=== PATIENT | male | born 1945 | race Caucasian/White ===

== ENCOUNTER → 2016-10-25 | Outpatient (CLI) | payer MEDICARE, BC ==
[~2016-10-25] MED LIST: /HYDR10TAB PO; /MOXI40TA PO; /ONDA4TA PO; /PRAV20TA PO; /PREG50CA PO; ACET50TA PO; ALDA25TA2 PO; ALLO100T PO; ALLO300T2 PO; AMLO10TA PO; ASPI325T PO; ASPI81TA11 PO; AZIT500T2 PO; BYST2.5T2 PO; CALC1CAP PO; CARD240C5 PO; CART120C PO; CART240C PO; CARV12.5 PO; CARV25TA PO; CO Q200C PO; DILT240C5 PO; DOCU100C PO; DRIS50002 PO; EMLA2.5C EXT; FERR325T3 PO; FLUO20CA8 PO; FLUO40CA PO; FURO40TA2 PO; GABA-283 PO; GABA600T PO; GLIP5TAB2 PO; GLIP5TAB8 PO; GLUC5TAB3 PO; HEPARIN 1,000 UNITS/ML 10ML VIAL (FOR RADIOLOGY& DIALYSIS ONLY) As Ordered ONE; HYDR-4267 PO; INSULANT SC; ISOVUE-300 61% 50ML VIAL (Q9967) As Ordered ONE; LISI-538 PO; LISI10TA4 PO; LISI40TAB PO; LOSA100T PO; METF1000 PO; MIDAZOLAM INJ 2 MG/2 ML VIAL (J2250) As Ordered ONE; MUPI2OI TOP; NEUR300C PO; NITR0.1S SL; NORT25CA2 PO; OMEG100011 PO; OXYC-517 PO; OXYC1SOL PO; PERCOCET PO; PRAV20TA2 PO; PRAV40TA2 PO; PRIL20CA9 PO; PROS5TAB PO; PROZ40CA PO; ROXI1TAB2 PO; SENO8.6T10 PO; SODIUM BICARBONATE 8.4% INJ 50MEQ 50 ML VIAL As Ordered ONE; TAMS0.4C PO; TERA5CA PO; TYLE325T5 PO; VITA10002 PO; VITA400T15 PO; ZOLP-187 PO; fentaNYL 100 MCG/2 ML INJECTION (J3010) As Ordered ONE
--- NOTE | 2016-10-25 17:42 | REPKIM ---
CLINICAL HISTORY: Patient with history of ESRD, right arm AVF, HTN, diabetes, PVD, CAD, NV and PTCA/stent in August 2016 presents with bilateral hip pain and lower extremity numbness. ABIs revealed 0.6 on the left and 0.7 on the right. Patient was referred to IR for an abdominal aortogram/distal runoff possible intervention. PROCEDURE PERFORMED: 1. Abdominal Aortogram 2. Non-selective Pelvic Arteriogram 3. Selective Bilateral Lower Extremity Arteriogram INTERVENTIONALIST: No Hart MD CONSENT: The risks, benefits and alternatives to the procedure were explained to the patient and informed written consent was obtained. MEDICATIONS: Local Lidocaine, Versed IV and Fentanyl IV. SEDATION: Conscious sedation using Versed 2.0 mg IV and Fentanyl 100 mcg IV; starting time at 1003 and end at 1135. Independent trained observer was present during the entire duration of the conscious sedation for monitoring. CONTRAST: 145 mL Isovue 300 EBL: 15 mL FLUORO TIME: 12.1 minutes PROCEDURE: The patient was brought to the interventional radiology suite and was positioned supine on the table. Time out procedure was performed. The right groin was prepped and draped in the usual sterile fashion. Local anesthetic was established using 2% Lidocaine. A 4-Argentine vascular sheath was introduced into the right common femoral artery using the Seldinger technique with a 25-gauge micropuncture needle under ultrasound guidance. Over a guidewire, a 4-Argentine Omniflush catheter was advanced and under fluoroscopy positioned at the level of the renal arteries. Contrast was injected and abdominal aortogram was performed in the frontal projection. The catheter was withdrawn and positioned in the distal aorta above its bifurcation. Contrast was injected and non- selective pelvic angiogram was performed in both oblique projections. Then selective catheterization of the left common iliac artery was performed and the guidewire advanced to the left external iliac artery. Then the catheter was advanced and its tip positioned in the left external iliac artery. Contrast was injected and a selective left lower extremity arteriogram was performed. Catheter was removed over a guidewire. Then contrast was injected through the side arm of the vascular sheath and a selective right lower extremity arteriogram was performed. The catheter and vascular sheath were removed. Hemostasis was achieved by manual compression over the puncture site in the recovery room. The patient tolerated the procedure well with no complications. This procedure was performed with fluoroscopic guidance. Dr. Hart was present. FINDINGS: ABDOMINAL AORTA: The visualized portion of the abdominal aorta and its bifurcation is patent and demonstrates a classic anatomy. There is a single renal artery bilaterally, without evidence of hemodynamically significant stenosis. The infrarenal aorta is patent with diffuse atherosclerotic disease without significant stenosis or aneurysmal dilation. LEFT LOWER EXTREMITY: The common iliac artery, external iliac artery and internal iliac artery are patent with no significant stenosis. There is a focal mild stenosis involving the distal external iliac artery. The common femoral artery is patent with no significant stenosis. The profunda femoris artery is patent with no significant stenosis. There are multisegmental moderate stenoses involving the superficial femoral artery. The SFA and popliteal arteries are diseased but patent and continuous. The tibioperoneal trunk is patent but diseased. There is a trifurcation. Both anterior tibial and peroneal arteries taper off in the proximal calf level. The posterior tibial artery is patent and continuous to the distal calf level which then reconstitutes the peritoneal artery via collaterals. There is peroneal continuation of the posterior tibial artery which is the dominant blood supply to the foot. The posterior tibial artery then continues as the plantar artery in the foot. Severely diseased tiny distal anterior tibial reconstitutes via collaterals off the peroneal artery. The reconstituted tiny size diseased anterior tibial artery then continues as the dorsalis pedis artery in the foot. RIGHT LOWER EXTREMITY: The common iliac artery, external iliac artery and internal iliac artery are patent with no significant stenosis. There is a mild stenosis involving the distal external iliac artery. The common femoral artery is patent with no significant stenosis. The profunda femoris artery is patent with no significant stenosis. There are multisegmental moderate stenoses involving the superficial femoral artery. The SFA and popliteal arteries are diseased but patent and continuous. The tibioperoneal trunk is patent but diseased. There is a trifurcation. Both anterior tibial and peroneal arteries taper off in the proximal calf level. The posterior tibial artery is patent and continuous without significant stenosis. The posterior tibial artery is the dominant blood supply to the foot. The posterior tibial artery continues as the plantar artery in the foot. The distal peroneal artery and severely diseased tiny distal anterior tibial reconstitute via collaterals off the posterior tibial artery. IMPRESSION: 1. Evaluation of the abdominal aorta and pelvic arteries is unremarkable except mild stenosis involving the distal external iliac artery. There is no significant inflow problem. Bilateral pelvic and hip pains are not due to vascular insufficiency. 2. Multisegmental moderate stenoses involving bilateral superficial femoral artery. Bilateral SFA and popliteal arteries are diseased but patent and continuous. The profunda femoris artery is patent with no significant stenosis. 3. Infrapopliteal disease with essentially a single vessel distal runoff via the dominant posterior tibial artery as discussed above. The posterior tibial artery continues as the plantar artery in the foot. Diseased bilateral tiny distal anterior tibial arteries reconstitute via collaterals. Advise routine vascular surgery follow up if worsening symptoms. Please see the report above for all other findings and details. cc: MD Jian Thakkar DO Khalid P Sindhu, MD MTDD
== END | disposition home or self-care (01) ==
LOC: M IRPRO 08:45
PROVIDERS: ATTEND Internal Medicine Cardiovascular Disease
DX: I70.203 Unspecified atherosclerosis of native arteries of extremities, bilateral legs (principal); M25.552 Pain in left hip; M25.551 Pain in right hip; R20.0 Anesthesia of skin; N18.6 End stage renal disease; I10 Essential (primary) hypertension; E11.9 Type 2 diabetes mellitus without complications; I25.10 Atherosclerotic heart disease of native coronary artery without angina pectoris; I25.2 Old myocardial infarction
CPT/HCPCS: 36246; 75625; 75716; C1769; C1887; C1894; J2250; J3010; Q9967

== ENCOUNTER → 2017-01-19 | Outpatient (CLI) | payer MEDICARE, BC ==
[~2017-01-19] MED LIST changes: -DILT240C5 PO; +DILT240C75 PO; -HEPARIN 1,000 UNITS/ML 10ML VIAL (FOR RADIOLOGY& DIALYSIS ONLY) As Ordered ONE; -ISOVUE-300 61% 50ML VIAL (Q9967) As Ordered ONE; -MIDAZOLAM INJ 2 MG/2 ML VIAL (J2250) As Ordered ONE; -SODIUM BICARBONATE 8.4% INJ 50MEQ 50 ML VIAL As Ordered ONE; -fentaNYL 100 MCG/2 ML INJECTION (J3010) As Ordered ONE
[2017-01-19 14:18] LABS: CALCIUM LEVEL 6.7 MG/DL (8.8-10.2); CREATININE FOR GFR 8.05 MG/DL (0.70-1.30); GLOMERULAR FILTRATION RATE 7.1 (>42); POTASSIUM SERUM 4.1 MEQ/L (3.5-5.1)
== END ==
LOC: M SMT 09:40
PROVIDERS: ATTEND Internal Medicine Cardiovascular Disease
DX: I25.10 Atherosclerotic heart disease of native coronary artery without angina pectoris (principal); R07.89 Other chest pain; N18.9 Chronic kidney disease, unspecified

== ENCOUNTER 2017-01-29 09:18 | Inpatient (IN) | payer MEDICARE, BC ==
[~2017-01-29] VITALS: Ht 188 cm; Wt 118.7 kg
[2017-01-29] MEDS ORDERED: VITA50003 (09:43)
[2017-01-29] MEDS ORDERED: PRAV20TA2 (09:43)
[2017-01-29] MEDS ORDERED: CLOP75TA2 PO (09:43)
[2017-01-29] MEDS ORDERED: GLIP5TAB15 PO (09:43)
[2017-01-29] MEDS ORDERED: LYRI100C10 (09:43)
[2017-01-29 10:03] LABS: BASO % 0.3 % (0.0-1.0); EOS # 0.1 K/mm3 (0.0-0.50); EOS % 2.3 % (0.0-3.0); LARGE UNSTAINED CELL % 0.5 % (0.0-4.0); LYMPH # 0.5 K/mm3 (1.5-4.5); LYMPH % 7.3 % (24.0-44.0); MEAN CORPUSCULAR HEMOGLOBIN 28.8 pg (27.0-33.0); MEAN CORPUSCULAR HGB CONC 31.5 g/dl (32.0-36.5); MEAN CORPUSCULAR VOLUME 91.3 fl (80.0-96.0); MONO # 0.3 K/mm3 (0.0-0.8); MONO % 4.4 % (0.0-5.0); PLATELET COUNT, AUTOMATED 112 k/mm3 (150-450); RED CELL DISTRIBUTION WIDTH 14.3 % (11.5-14.5); WHITE BLOOD COUNT 5.9 K/mm3 (4.0-10.0)
[2017-01-29 10:11] LABS: INR 1.11
[2017-01-29 10:23] LABS: CALCIUM LEVEL 7.4 MG/DL (8.8-10.2); CREATININE FOR GFR 7.41 MG/DL (0.70-1.30); GLOMERULAR FILTRATION RATE 7.8 (>42); MAGNESIUM LEVEL 3.3 MG/DL (1.8-2.4); PHOSPHORUS LEVEL 4.1 MG/DL (2.5-4.9); POTASSIUM SERUM 4.7 MEQ/L (3.5-5.1)
--- NOTE | 2017-01-29 11:57 | REP ---
CT HEAD WITHOUT CONTRAST: COMPARISON: None. The ventricles and sulci are dilated. There is no evidence of an extra-axial fluid collection or shift of the midline structures. There is a tiny focal lucency seen in the head of the caudate nucleus on the right, likely an old lacunar infarct. There is no evidence of an acute intracranial hemorrhagic or nonhemorrhagic event. The posterior fossa shows cerebellar atrophy. The skull and imaged paranasal sinuses along with the mastoid air cells are unremarkable. IMPRESSION: 1. Diffuse cerebellar and cerebral atrophy. 2. Small old right lacunar infarct as described above. 3. No evidence of an acute intracranial hemorrhagic or nonhemorrhagic event. Signed by Jerald Ahmadi DO 01/29/2017 01:32 P
--- NOTE | 2017-01-29 12:08 | REP ---
PORTABLE CHEST: HISTORY: Dyspnea. COMPARISON: 08/16/2016 The technique utilized in obtaining the radiograph has magnified the cardiac silhouette and accentuated the interstitial markings. There is cardiomegaly. Dual chamber bipolar pacemaker device, status quo. There is pulmonary vascular redistribution. There is increased interstitial markings throughout the lung hitchcock with bilateral perihilar peribronchial cuffing and haziness throughout the pulmonary vascularity. IMPRESSION: CHF. Signed by Jerald Ahmadi DO 01/29/2017 01:32 P
[2017-01-29] MEDS ORDERED: FUROSEMIDE 20 MG/2 ML VIAL (J1940) IV ONE (13:15)
--- NOTE | 2017-01-29 14:19 | HPEPDOC ---
Medical History and Physical Date of Admission 01/29/17 History and Physical PRIMARY CARE PROVIDER: Dr. Carter ATTENDING: Dr. Victor M Pretty CHIEF COMPLAINT: Generalized weakness HISTORY OF PRESENT ILLNESS: This is an 72-year-old male past history of end-stage renal disease on peritoneal hemodialysis, insulin-dependent diabetes mellitus, CAD status post PCI, hypertension, hyperlipidemia, diabetic neuropathy presents complaining of generalized weakness and tremulousness. Patient's states that's he's been feeling sick since , complaining of being tremulous with a flapping tremor like motions in his hands. Patient states he walks with a cane at baseline however has been having increased generalized weakness and has been having difficulty walking. Pt denies focal weakness/slurred speech/facial droop. Patient denies chest pain/shortness of breath/palpitations. No nausea/vomiting/abdominal pain. He does not these had increase amounts of swelling in his lower extremities and abdomen. States he is using his peritoneal dialysis as directed and is working properly. The patient was recently admitted last December for uremic pericarditis as well as volume overload requiring hemodialysis. PAST MEDICAL HISTORY: As per HPI PAST SURGICAL HISTORY: PCI stents, kidney stents from kidney stone, lithotripsy , carpal tunnel, PPM SOCIAL HISTORY: Smoked 2ppd x 50 years, quit 10 years ago. No alcohol or illicit drugs. Walks with a cane. FAMILY HISTORY: Non contributory ALLERGIES: Please see below. REVIEW OF SYSTEMS: HEENT: Denies sore throat/headache CARDIOVASCULAR: Denies chest pain/palpitations RESPIRATORY: No shortness of breath/cough GASTROINTESTINAL: denies nausea/vomiting GENITOURINARY: Denies dysuria/urinary urgency. MUSCULOSKELETAL: Denies myalgias/arthralgias NEUROLOGICAL: Denies any focal weakness. Tremulous Rest of ROS negative. HOME MEDICATIONS: Please see below. PHYSICAL EXAMINATION: Vitals: (see below) General: No acute distress, laying comfortably in bed. HEENT: Moist mucous membranes. Neck: No JVD or lymphadenopathy Cardiac: RRR, 3/6 GRADY 2nd RICS Pulm: Coarse crackles at the bases b/l. No wheezing, rhonchi Abd: NT/ + BS. Distended. Ext: 1+ pitting edema BLE. No cyanosis. + Asterixis. RUE fistula +bruit; distal pulse intact. Neuro: Strength 5/5 BUE and BLE. CN 2-12 intact. F to N intact Negative pronator drift. Negative Babinki. LABORATORY DATA: See below. IMAGING: CXR 01/29/17 The ventricles and sulci are dilated. There is no evidence of an extra-axial fluid collection or shift of the midline structures. There is a tiny focal lucency seen in the head of the caudate nucleus on the right, likely an old lacunar infarct. There is no evidence of an acute intracranial hemorrhagic or nonhemorrhagic event. The posterior fossa shows cerebellar atrophy. The skull and imaged paranasal sinuses along with the mastoid air cells are unremarkable. IMPRESSION 1. Diffuse cerebellar and cerebral atrophy. 2. Small old right lacunar infarct as described above. 3. No evidence of an acute intracranial hemorrhagic or nonhemorrhagic event. CXR 01/29/17 The technique utilized in obtaining the radiograph has magnified the cardiac silhouette and accentuated the interstitial markings. There is cardiomegaly. Dual chamber bipolar pacemaker device, status quo. There is pulmonary vascular redistribution. There is increased interstitial markings throughout the lung hitchcock with bilateral perihilar peribronchial cuffing and haziness throughout the pulmonary vascularity. IMPRESSION: CHF. MICROBIOLOGY: Please see below. ASSESSMENT/PLAN: 1. Congestive heart failure 2/2 progressive renal failure. Unknown EF. Patient is typically on peritoneal dialysis at home. States he has been complaining. Chest x-ray will pulmonary congestion. Denies chest pain/SOB. Discussed with Dr. Dawkins, patient will be getting hemodialysis. Fluid resections. Daily weights. Patient does urinate minimally and has been given Lasix by the ED. Echocardiogram. Trend cardiac enzymes. 2. Asterixis- secondary to progressive renal failure. Will be dialyzed. If patient remains tremulous despite's being dialyzed, we'll need to look into other causes of his tremors. The patient does have a PPM and we are unable to get an MRI of the brain. He does have atrophy within the cerebellar region on the CAT scan. Neuro checks. 3. Insulin-dependent diabetes mellitus- continue Levemir and sliding scale insulin. Hold by mouth meds. 4. Hypertension- continue home meds 5. CAD status post PCI- continue aspirin and statin 6. Hyperlipidemia- on statin 7. History of complete heart block status post PPM- EKG with a paced rhythm. 8. Chronic anemia - normocytic - likely from anemia of chronic kidney dz, will check anemia panel. DVT prophylaxis- heparin subcutaneous Patient will be followed by Dr. Pretty starting 01/30/17 at 7 AM. Vital Signs Vital Signs Date Time Temp Pulse Resp B/P (MAP) Pulse Ox O2 Delivery O2 Flow Rate FiO2 01/29/17 12:45 136/63 (87) 01/29/17 12:30 64 90 01/29/17 09:28 97.9 18 Laboratory Data Labs 24H Laboratory Tests 2 01/29/17 09:51: White Blood Count 5.9, Red Blood Count 2.82L, Hemoglobin 8.1L, Hematocrit 25.8L , Mean Corpuscular Volume 91.3, Mean Corpuscular Hemoglobin 28.8, Mean Corpuscular Hemoglobin Concent 31.5L, Red Cell Distribution Width 14.3, Platelet Count 112L, Neutrophils (%) (Auto) 85.0H, Lymphocytes (%) (Auto) 7.3L, Monocytes (%) (Auto) 4.4, Eosinophils (%) (Auto) 2.3, Basophils (%) (Auto) 0.3, Neutrophils # (Auto) 5.0, Lymphocytes # (Auto) 0.5L, Monocytes # (Auto) 0.3, Eosinophils # (Auto) 0.1, Basophils # (Auto) 0.0, Large Unclassified Cells % 0.5 , Large Unclassified Cells # 0.0, Prothrombin Time 14.4, Prothromb Time International Ratio 1.11, Activated Partial Thromboplast Time 29.7, Anion Gap 8 , Glomerular Filtration Rate 7.8L, Blood Urea Nitrogen 50H, Creatinine 7.41H, Sodium Level 136, Potassium Level 4.7, Chloride Level 100, Carbon Dioxide Level 28, Calcium Level 7.4L, Phosphorus Level 4.1, Total Creatine Kinase 63, Magnesium Level 3.3H, Creatine Kinase MB 1.5, Creatine Kinase MB Relative Index 2.38, Troponin I 0.03 CBC/BMP Laboratory Tests 01/29/17 09:51 Red Blood Count 2.82 L, Mean Corpuscular Volume 91.3, Mean Corpuscular Hemoglobin 28.8, Mean Corpuscular Hemoglobin Concent 31.5 L, Red Cell Distribution Width 14.3, Neutrophils (%) (Auto) 85.0 H, Lymphocytes (%) (Auto) 7.3 L, Monocytes (%) (Auto) 4.4, Eosinophils (%) (Auto) 2.3, Basophils (%) (Auto ) 0.3, Neutrophils # (Auto) 5.0, Lymphocytes # (Auto) 0.5 L, Monocytes # (Auto) 0.3, Eosinophils # (Auto) 0.1, Basophils # (Auto) 0.0, Calcium Level 7.4 L, Phosphorus Level 4.1, Total Creatine Kinase 63 Home Medications Scheduled Ascorbic Acid (Vitamin C) 500 Mg Cap, 1,000 MG PO QHS Aspirin (Aspirin Low Dose) 81 Mg Tab, 81 MG PO QHS Carvedilol (Carvedilol) 25 Mg Tab, 25 MG PO BID Clopidogrel Bisulfate (Clopidogrel) 75 Mg Tab, 75 MG PO QHS Cyanocobalamin (Vitamin B-12) 1,000 Mcg Tab, 1,000 MCG PO QHS Ferrous Sulfate (Ferrous Sulfate) 325 Mg Tab, 325 MG PO QHS Finasteride (Proscar) 5 Mg Tab, 5 MG PO QHS Fluoxetine Hcl (Fluoxetine HCl) 40 Mg Cap, 40 MG PO QHS Glipizide (Glipizide ER) 5 Mg Tab, 5 MG PO QHS Insulin Glargine (Lantus) 1 Units/0.01 Ml Susp, 40 UNITS SC QHS Lisinopril (Lisinopril) 20 Mg Tab, 20 MG PO BID Mupirocin (Mupirocin) 2 % Oin, 1 DOSE TOP ASDIRECTED APPLY TO CATH SITE WHEN NEEDED [place] 3 Polyunsat Fatty Acids ([place] 3 1000 mg) 1 Cap Cap, 2 CAP PO BID Omeprazole (Omeprazole) 40 Mg Cap, 40 MG PO QHS Vitamin D (Drisdol) 50,000 Unit Cap, 50,000 UNIT PO QWEEK MONDAY Scheduled PRN Acetaminophen (Tylenol) 325 Mg Tab, 650 MG PO Q4H PRN for PAIN / FEVER Milk Of Magnesia (Milk of Magnesia) 1,200 Mg/15 Ml [place], 30 ML PO DAILY PRN for CONSTIPATION Nitroglycerin (Nitrostat) 0.4 Mg Subl, 0.4 MG SL NITRO PRN for CHEST PAIN Oxycodone HCl (Oxycodone HCl) 5 Mg Tab, 5 MG PO QID PRN for PAIN Senna (Senna Lax) 8.6 Mg Tab, 1 TAB PO QHS PRN for CONSTIPATION Allergies Coded Allergies: Povidone Iodine (Verified Allergy, Unknown, 10/11/13) TAPE (Verified Allergy, Unknown, 10/11/13) DAVID BENITEZ MD January 29, 2017 14:19
[2017-01-29] MEDS ORDERED: MUPI2OI TOP (14:27)
[2017-01-29] MEDS ORDERED: DRIS50002 PO (14:27)
[2017-01-29] MEDS ORDERED: OMEP40CA2 PO (14:29)
[2017-01-29] MEDS ORDERED: NITR4TASL SL (14:29)
[2017-01-29] MEDS ORDERED: GLUCOSE 4 GM CHEW TABLET PO PRN (14:30)
[2017-01-29] MEDS ORDERED: DEXTROSE 50% 50 ML SYRINGE IV PRN (14:30)
[2017-01-29] MEDS ORDERED: GLUCAGON FOR INJ 1 MG VIAL (J1610) SC PRN (14:30)
[2017-01-29] MEDS ORDERED: VITA500C24 PO (14:31)
[2017-01-29] MEDS ORDERED: SENN8.6T10 PO (14:31)
[2017-01-29] MEDS ORDERED: FERR325T3 PO (14:31)
[2017-01-29] MEDS ORDERED: MILKSUS PO (14:31)
[2017-01-29] MEDS ORDERED: LYRI100C10 PO (14:32)
[2017-01-29] MEDS ORDERED: CO Q100C10 PO (14:35)
[2017-01-29] MEDS ORDERED: ATOR1TAB18 PO (14:35)
[2017-01-29] MEDS: HEPARIN SOD (PORCINE) 5000 UNITS/ML VIAL SQ SCH ×2 (14:51→22:11)
--- NOTE | 2017-01-29 14:51 | ECGEPIP ---
Stationary ECG Study [facility] - ED Test Date: 2017-01-29 Pat Name: JOYCE ANN Department: Room: - Gender: M [employer]: JJose : 1945 Requested By: ABBIE Hyman Order Number: [id number] Reading MD: Roxana Snyder Measurements Intervals [place] Rate: 68 P: 28 MA: 182 QRS: 268 QRSD: 192 T: 79 QT: 511 QTc: 545 Interpretive Statements ELECTRONIC VENTRICULAR PACEMAKER ABNORMAL RHYTHM ECG PRIOR 08/16/16 NOT PACED Electronically Signed On 01-29-2017 14:51:00 EDT by Roxana Snyder
[2017-01-29] MEDS ORDERED: FUROSEMIDE 100 MG/10 ML VIAL (J1940) IV ONE (15:00)
[2017-01-29] MEDS ORDERED: PRIMIDONE 50 MG TAB PO ONE (15:00)
[2017-01-29 15:30] VITALS: BP 145/60
[2017-01-29 15:58] VITALS: BP 145/60
[2017-01-29] MEDS: HumaLOG INSULIN (NovoLOG) PER UNIT SC SCH ×2 (17:12→21:00)
[2017-01-29 20:01] VITALS: BP 159/67
[2017-01-29] MEDS ORDERED: ASCORBIC ACID 500 MG TAB PO SCH (21:00)
[2017-01-29] MEDS ORDERED: FLUoxetine 20 MG CAP PO SCH (21:00)
[2017-01-29] MEDS ORDERED: PREGABALIN 100 MG CAP (LYRICA) PO SCH (21:00)
[2017-01-29] MEDS: PRIMIDONE 50 MG TAB PO SCH (22:11)
[2017-01-29 23:42] VITALS: BP 160/70
[2017-01-30] MEDS ORDERED: MUPIROCIN 2% OINT 22 GM TUBE TOP PRN
[2017-01-30] MEDS ORDERED: ACETAMINOPHEN 325 MG TAB PO PRN
[2017-01-30] MEDS ORDERED: MOM 30ML SUSPENSION UDC PO PRN
[2017-01-30] MEDS ORDERED: SENNA 8.6 MG TAB (SENOKOT) PO PRN
[2017-01-30] MEDS: OMEPRAZOLE 20 MG CAP PO SCH ×2 (01:16→20:18)
[2017-01-30] MEDS: CLOPIDOGREL 75 MG TAB PO SCH ×2 (01:17→20:15)
[2017-01-30] MEDS: FINASTERIDE 5 MG TAB PO SCH ×2 (01:17→20:17)
[2017-01-30] MEDS: CARVedilol 12.5 MG TAB PO SCH ×3 (01:17→20:17)
[2017-01-30] MEDS: CYANOCOBALAMIN 500 MCG TAB PO SCH ×2 (01:18→20:19)
[2017-01-30] MEDS: FERROUS SULFATE 325MG TAB PO SCH ×2 (01:18→20:16)
[2017-01-30] MEDS: ASPIRIN 81 MG ENTERIC TAB PO SCH ×2 (01:18→20:17)
[2017-01-30] MEDS: LISINOPRIL 20 MG TAB PO SCH ×3 (01:23→20:19)
[2017-01-30] MEDS: oxyCODONE 5MG TAB PO PRN (01:35)
[2017-01-30 04:57] VITALS: BP 152/72
[2017-01-30 05:21] LABS: MEAN CORPUSCULAR HEMOGLOBIN 29.6 pg (27.0-33.0); MEAN CORPUSCULAR HGB CONC 31.5 g/dl (32.0-36.5); MEAN CORPUSCULAR VOLUME 93.9 fl (80.0-96.0); RED CELL DISTRIBUTION WIDTH 14.1 % (11.5-14.5); WHITE BLOOD COUNT 7.1 K/mm3 (4.0-10.0)
[2017-01-30 05:41] LABS: CALCIUM LEVEL 7.2 MG/DL (8.8-10.2); CREATININE FOR GFR 7.69 MG/DL (0.70-1.30); GLOMERULAR FILTRATION RATE 7.4 (>42); PERCENT SATURATION 14.1 % (19.7-37.4); POTASSIUM SERUM 4.6 MEQ/L (3.5-5.1)
[2017-01-30] MEDS: HEPARIN SOD (PORCINE) 5000 UNITS/ML VIAL SQ SCH (06:00)
--- NOTE | 2017-01-30 06:36 | CR ---
DATE OF CONSULTATION: 01/29/2017 REASON FOR CONSULT: Shortness of breath and worsening weakness and tremors in this gentleman with end-stage renal disease. HISTORY OF PRESENT ILLNESS: Mr. Yuen is a 72-year-old gentleman with known history of longstanding diabetes, coronary artery disease, peripheral vascular disease, hypertension and end-stage renal disease. He has been on peritoneal dialysis. He presented to the emergency room today with generalized weakness and severe shaking of hands. He reports that he could not even hold a cup of coffee in his hand. He was also short of breath and chest x-ray showed congestive heart failure in the emergency room. The patient is admitted and a nephrology consultation was requested. The patient is seen in the emergency room. PAST MEDICAL AND SURGICAL HISTORY: 1. Longstanding type 2 diabetes. 2. Hypertension. 3. Hyperlipidemia. 4. End-stage renal disease. 5. History of kidney stones. 6. History of coronary artery disease, status post coronary angioplasty with stents. 7. History of peripheral vascular disease. 8. History of anemia of chronic kidney disease. 9. History of morbid obesity. 10. History of depression. MEDICATIONS (His home medications include): - vitamin C 500 mg daily - aspirin 81 mg daily - carvedilol 25 mg twice a day - Plavix 75 mg daily - B12 1000 mcg daily - ferrous sulfate 325 mg daily - Proscar 5 mg at bedtime - fluoxetine 40 mg at bedtime - glipizide 5 mg at bedtime - Lantus insulin 40 units subcutaneous at bedtime - lisinopril 20 mg twice a day - omega 3 fatty acids 1000 mg 3 capsules twice a day - omeprazole 40 mg at bedtime - vitamin D 50,000 units once a week - he also takes Tylenol as needed for headache and pain ALLERGIES: The patient reports allergy to IODINE and TAPE. PERSONAL AND SOCIAL HISTORY: The patient is and lives by himself. He has history of smoking which he quit about 10 years ago. He denies any alcohol or drug use. FAMILY HISTORY: Negative for end-stage renal disease. REVIEW OF SYSTEMS: The patient denies any fever or chills. He reports that he usually has tremors, but they got severe and he could not function or hold anything in his hands. Ears, nose and throat are unremarkable. Cardiovascular system is significant for dyspnea on exertion. He denies any chest pain or palpitations. Respiratory system is negative for cough or hemoptysis. Gastrointestinal (GI) system is significant for history of gastroesophageal reflux disease. The patient denies any nausea, vomiting or diarrhea. Genitourinary () system is significant for history of kidney stones and benign prostatic hypertrophy. He denies any dysuria or hematuria. Musculoskeletal system is significant for chronic back pain and difficulty ambulating. He has degenerative arthritis. Endocrine system is significant for secondary hyperparathyroidism and type 2 diabetes. He denies any hypoglycemic episodes. Neurological system is significant for chronic tremors which worsened over the last 72 hours. He denies any history of stroke. Hematological system is significant for anemia of chronic kidney disease. Skin is negative for rash or ulcers. PHYSICAL EXAMINATION: The patient is awake and alert at the time of my visit in the emergency room. Temperature 98.2 degrees Fahrenheit, heart rate 72 per minute and respiratory rate 22 per minute. Blood pressure 145/60 mmHg and oxygen saturation 97% on room air. Head is atraumatic. Ears, nose and throat are unremarkable. Pupils equal and reactive to light and sclerae anicteric. Neck is supple and jugular venous distention (JVD) is noticed about 6-7 cm above sternal angle. There is no thyroid enlargement and trachea is midline. Heart sounds are regular and lungs with bibasilar rales. Abdomen obese and nontender. Bowel sounds are present. There is no palpable organomegaly. Extremities have no cyanosis or clubbing. Skin has no rash or ulcers. Neurologically, he is awake, alert and oriented times three. There is no focal neurological deficit. LABORATORY DATA: Sodium 136 and potassium 4.7. BUN is 50 and creatinine 7.41. CO2 is 28, glucose 113 and calcium 7.4. Magnesium level is 3.3. His initial troponin was 0.03. WBC count 5.9, hemoglobin 8.1 and hematocrit 25.8. Platelets 112. Chest x-ray reviewed independently, he has cardiomegaly and bilateral pulmonary vascular congestion and interstitial edema. PROBLEMS: 1. Shortness of breath. The patient has chronic dyspnea on exertion. He is somewhat volume overloaded. We will initiate peritoneal dialysis with 2 liters bags and used to 2.5% solution. Will try to get him a negative fluid balance with dialysis. In addition, the patient will be given Lasix 100 mg intravenously and we will monitor his urine output. He does get severe leg cramps with aggressive fluid removal with dialysis. We will have to use caution as he is oxygenating 97% on room air. 2. Generalized weakness and tremors. His weakness is probably multifactorial. I have observed significant shaking of his hands and jerky movements. The patient has been adequately dialyzed and his last adequacy test was normal. We will continue with peritoneal dialysis and consider doing an extra session of hemodialysis tomorrow. At present, I will also add Mysoline 50 mg twice a day with the first dose now and monitor for the next couple of days how he responds. 3. End-stage renal disease. At present, the patient will be continued on peritoneal dialysis. We will probably perform one session of hemodialysis if his condition does not improve over next 48 hours. I will also discuss with the patient about possibility of switching back to hemodialysis due to his weakness and depression. He is struggling to continue with peritoneal dialysis at home. The patient also has significant limitations with transportation due to which he initially chose to perform peritoneal dialysis compared with hemodialysis. 4. Anemia. His anemia is chronic and is probably worse. We will check on his iron studies. He probably has some chronic GI blood loss. If his iron level is low, then we will consider giving him intravenous iron. He has received intravenous iron previously. The patient will also be treated with Aranesp depending upon his iron studies. 5. Hypertension. His blood pressure seems to be reasonable. We will continue with current antihypertensives. 6. Coronary artery disease. At present, his symptoms are more related to congestive heart failure and volume overload. His initial CPK and troponin are negative. I do not feel that he has any acute coronary problems at present. 7. Diabetes. I suggest to continue with insulin coverage and monitor his blood sugars closely. I thank you for involving me in the care of Mr. Yuen. I will follow him along with you.
[2017-01-30 08:00] VITALS: BP 105/53
[2017-01-30] MEDS: HumaLOG INSULIN (NovoLOG) PER UNIT SC SCH ×4 (09:22→20:19)
[2017-01-30] MEDS: PRIMIDONE 50 MG TAB PO SCH ×2 (09:27→20:17)
[2017-01-30] MEDS ORDERED: SLF 3 ML SYR IV PRN (10:15)
[2017-01-30 10:56] LABS: ALBUMIN 2.5 GM/DL (3.2-5.2); ALBUMIN/GLOBULIN RATIO 0.66 (1.00-1.93); BILIRUBIN,DIRECT 0.2 MG/DL (0.0-0.2); BILIRUBIN,TOTAL 0.6 MG/DL (0.2-1.0); TOTAL PROTEIN 6.3 GM/DL (6.4-8.2)
[2017-01-30 10:59] LABS: FOLATE 4.4 NG/ML (>5.4)
[2017-01-30] MEDS ORDERED: HEPARIN 1,000 UNITS/ML 10ML VIAL (FOR RADIOLOGY& DIALYSIS ONLY) IV ONE (11:45)
--- NOTE | 2017-01-30 13:03 | IPN ---
DATE: 01/30/2017 Wali is a patient of Dr. Amarilis Martin and the hospitalist service admitted with shortness of breath and altered motor function with generalized weakness and severe tremor of the hands that essentially is asterixis. He is unable to eat or drink because of this. He was volume overloaded on admission and was given peritoneal dialysis yesterday by Dr. Dawkins. He has a history of chronic anemia with anemia of chronic disease, hypertension, coronary artery disease, type 2 diabetes, and obviously end stage renal disease. PHYSICAL EXAMINATION: 140/80, pulse 68, respiratory rate 18, 91% oxygen saturation. GENERAL APPEARANCE: He is resting in bed. He is not short of breath at rest. No jugular venous distention (JVD) present. LUNGS: Decreased breath sounds heard. Rales at the bases. HEART: Regular rhythm. 1/6 systolic ejection murmur. ABDOMEN: Soft, nontender. He has trace to 1+ peripheral edema. His neck has JVD present. NEUROLOGIC EXAM: Shows that her follows commands. He has normal strength in the arms and legs. He has a flapping tremor of the hands with quite prominent asterixis. There is less tremor at rest. There is no cogwheeling rather. He does not have myoclonic jerking. LABORATORIES: Ammonia level was just ordered and pending. Sodium 134, potassium 4.6, creatinine 7.9. Iron studies show anemia of chronic disease, high ferritin, low TIBC. White count 7.1, hemoglobin 8.2, which is stable. Platelets 116. INR was 1.1. Blood sugars in the 140 range. IMPRESSION: 1. Myoclonus with asterixis. This has multiple etiologies. With his end stage renal disease we have to rule out hepatorenal syndrome and I have ordered a state ammonia level. I have also ordered a liver profile as he has not had liver functions done this admission. His INR is mildly prolonged. Etiology is unknown, certainly liver disease needs to be considered and I have ordered the liver profile and ammonia liver. Asterixis can also occur with volume toxicity after detention dialysis. This also could be a side affect of both SSRI's (patient on 40 mg of Prozac a day) as well as medications such as gabapentin and pregabalin (he is on Lyrica 100 mg at bedtime). I have reduced the dose of the Lyrica and the Mysoline by Dr. Dawkins. 2. End stage renal disease. Dialysis per Dr. Dawkins. 3. Congestive heart failure (CHF). He is volume overloaded. He does not make much urine. He is getting some IV Lasix. Most of his volume control needs to be through his dialysis sessions. 4. Anemia of chronic disease. Hemoglobin is stable. 5. Hyperlipidemia. He is on high dose atorvastatin. It might be prudent to reduce the dose of this in the face of his advanced renal disease and possibility of liver disease. I have taken the liberty of reducing his atorvastatin to 40 mg daily at bedtime. 6. Diabetes. He is on a sliding scale of insulin with coverage. 7. Chronic pain syndrome. I have reduced the Lyrica as noted above. He is on OxyIR as an outpatient. 8. Benign prostatic hypertrophy (BPH). He is on Proscar 5 mg daily which we will continue. 9. Coronary artery disease status post PCI with coronary artery stents. Continue Plavix 75 mg daily as well as his statin and beta-roger on carvedilol 25 mg twice a day. 10. Hypertension. Continue lisinopril 20 mg daily, carvedilol and volume control by dialysis. If the asterixis does not improve, would consider having neurology see him, though the etiology of this is most likely metabolic and not neurologic.
[2017-01-30 15:04] VITALS: BP 136/69
[2017-01-30] MEDS: NYSTATIN 100,000 UNITS/GM TOPICAL PWD 15 GM TOP SCH ×3 (15:15→20:20)
[2017-01-30] MEDS: SLF 3 ML SYR IV SCH ×2 (16:20→20:20)
[2017-01-30] MEDS: ATORVASTATIN 20 MG TAB PO SCH (20:14)
[2017-01-30] MEDS: FLUoxetine 20 MG CAP PO SCH (20:15)
[2017-01-30] MEDS: PREGABALIN 50 MG CAP (LYRICA) PO SCH (20:18)
[2017-01-30 20:24] VITALS: BP 145/74
[2017-01-30] MEDS ORDERED: ATORVASTATIN 20 MG TAB PO SCH (21:00)
--- NOTE | 2017-01-30 21:46 | IPN ---
DATE: 01/30/2017 Mr. Yuen is seen this morning on his bedside. He remains very weak and reports that his jerky movements of his hands are not any significantly improved. Nursing staff reports that the patient could not get up himself from the bed and needed assistance. The patient denies any chest pain or palpitations. He remains short of breath on exertion. There is no nausea or vomiting. PHYSICAL EXAMINATION: Temperature 97.7 degrees Fahrenheit, heart rate 60 per minute, respiratory rate 20 per minute, blood pressure 105/53 mm of mercury, and oxygen saturation 91% on room air. His head is atraumatic. Neck veins are moderately distended. Neck is supple and without thyromegaly. Pupils are equal and reactive to light and sclerae are anicteric. Ears, nose, and throat are unremarkable. Heart sounds are regular and lungs with moderate bilateral air entry. Abdomen is soft, obese, and nontender. Bowel sounds are normal. Extremities have no cyanosis or clubbing. Skin has no rash or ulcers. Neurologically he is awake and alert. Jerky movements of his upper extremities are only slightly improved since admission. Today's labs show sodium level 134, potassium 4.6, BUN 54, creatinine 7.69, glucose 217, and calcium 7.2. Magnesium level is 3.0. Iron 31, saturation 14%, and ferritin 1103. Vitamin B12 level 1312 and folic acid 4.4. Serum ammonia level is 21. Liver function tests (LFTs) are normal with total bilirubin 0.6, AST 4, ALT 7, and alkaline phosphatase 104. PROBLEMS: 1. End-stage renal disease. The patient has been on peritoneal dialysis. I suspect that he has been under-dialyzed. At present we will continue with five exchanges of peritoneal dialysis and in addition will perform one session of hemodialysis today. 2. Jerky movements of hands and tremors. I suspect uremia is the cause of his tremulous, jerky movements. It remains to be seen if his symptoms improve after hemodialysis. The patient will be dialyzed this afternoon, and in addition we will continue with peritoneal dialysis, five exchanges per day. 3. Anemia. The patient has folic acid deficiency and anemia of end-stage renal disease. He also has iron deficiency, so his anemia seems to be multifactorial. At present, we will start with folic acid 1 mg daily and Nephro-Leland one tablet daily. We will also give him a dose of Venofer 400 mg intravenously once his condition improves. 4. Hypotension. Blood pressure seems to be reasonable on current antihypertensive medications. 5. Diabetes. We will continue with insulin coverage per protocol. 6. Protein malnutrition. His serum albumin level is only 2.5. Most likely his oral intake of protein is low. The patient has been living by himself and does not cook. We will discuss with the dietitian to improve his protein intake.
[2017-01-31] VITALS (8 sets, daily range): BP systolic 118–176; BP diastolic 56–92
[2017-01-31] MEDS: SLF 3 ML SYR IV SCH ×3 (06:15→21:11)
[2017-01-31 07:40] LABS: MEAN CORPUSCULAR HEMOGLOBIN 30.4 pg (27.0-33.0); MEAN CORPUSCULAR HGB CONC 32.6 g/dl (32.0-36.5); MEAN CORPUSCULAR VOLUME 93.3 fl (80.0-96.0); RED CELL DISTRIBUTION WIDTH 14.1 % (11.5-14.5); WHITE BLOOD COUNT 8.2 K/mm3 (4.0-10.0)
[2017-01-31 07:50] LABS: CALCIUM LEVEL 8.6 MG/DL (8.8-10.2); CREATININE FOR GFR 4.87 MG/DL (0.70-1.30); GLOMERULAR FILTRATION RATE 12.6 (>42); MAGNESIUM LEVEL 2.4 MG/DL (1.8-2.4); POTASSIUM SERUM 4.1 MEQ/L (3.5-5.1)
[2017-01-31] MEDS: HumaLOG INSULIN (NovoLOG) PER UNIT SC SCH ×4 (08:06→20:53)
[2017-01-31] MEDS: PRIMIDONE 50 MG TAB PO SCH ×2 (08:07→21:08)
[2017-01-31] MEDS: NEPHRO-VIT TAB (NEPHROCAPS) PO SCH (08:07)
[2017-01-31] MEDS: NYSTATIN 100,000 UNITS/GM TOPICAL PWD 15 GM TOP SCH ×2 (08:07→21:10)
[2017-01-31] MEDS: FOLIC ACID 1 MG TAB PO SCH (08:08)
[2017-01-31] MEDS: CARVedilol 12.5 MG TAB PO SCH ×2 (08:08→21:08)
[2017-01-31] MEDS: LISINOPRIL 20 MG TAB PO SCH ×2 (08:08→21:08)
--- NOTE | 2017-01-31 16:02 | REP ---
CHEST, TWO VIEWS: Two views of the chest are performed and compared to prior study of 01/29/2017. There is cardiomegaly. There is mild increase in diffuse bilateral infiltrates. Left dual lead pace maker is again noted. There are degenerative changes of the spine. IMPRESSION: Mild increase in bilateral infiltrates. Signed by Tommie Ward MD 01/31/2017 04:10 P
--- NOTE | 2017-01-31 19:08 | ECHO ---
DATE OF PROCEDURE: 01/31/2017 REFERRING PHYSICIAN: Dr. Sow and Dr. Brown INDICATION: Edema. HEIGHT: 188 cm WEIGHT: 127 kg DIMENSIONS: IVS: 1.5 LV: 5.4 LVPW: 1.2 LA: 4.8 Aorta: 3.3 FINDINGS: The study is rather difficult technical quality corresponding to patient's body habitus. Left ventricle is normal size and overall normal contractility. I estimate ejection fraction (EF) around 65%. Right ventricle was poorly seen but does not appear grossly enlarged. Left atrium is at least moderately enlarged. Right atrium was poorly visualized. Aortic valve is calcific. It has three cusp and there is some restriction of leaflet mobility. Mitral valve also exhibits degenerative abnormalities with thickening of leaflets and mitral annular calcifications. Tricuspid valve appears normal. Pulmonic valve was not well seen. Inferior vena cava is dilated and has only minimal collapse with respiration indicative of likely very high central venous pressure. Aortic root is normal. Aortic arch also appears normal. Abdominal aorta was not well seen. Doppler interrogation reveals mild aortic stenosis with mean gradient 20 mmHg. There is probably moderate or moderately severe mitral insufficiency with somewhat eccentric mitral regurgitation (MR) jet. No mitral stenosis. Mild tricuspid insufficiency is seen. Calculated pulmonary artery pressure is at least in mid to high 40s corresponding to moderate pulmonary hypertension. Mitral inflow pattern and tissue Doppler imaging of mitral annulus reveal grade 2 diastolic dysfunction indicative of high LVEDP. CONCLUSIONS: 1. Study is of fair technical quality. 2. Normal left ventricle (LV) size with moderate left ventricular hypertrophy (LVH) and overall preserved LV systolic function. 3. Mild aortic stenosis. 4. At least moderate or moderately severe mitral insufficiency. 5. High central venous pressure. 6. At least moderate pulmonary hypertension. 7. Pacemaker lead artifact apparent in right ventricular chambers. COMMENT: Subacute bacterial endocarditis (SBE) prophylaxis is not recommended. MTDD
[2017-01-31] MEDS: OMEPRAZOLE 20 MG CAP PO SCH (21:06)
[2017-01-31] MEDS: CYANOCOBALAMIN 500 MCG TAB PO SCH (21:07)
[2017-01-31] MEDS: ATORVASTATIN 20 MG TAB PO SCH (21:07)
[2017-01-31] MEDS: ASPIRIN 81 MG ENTERIC TAB PO SCH (21:09)
[2017-01-31] MEDS: FLUoxetine 20 MG CAP PO SCH (21:09)
[2017-01-31] MEDS: PREGABALIN 50 MG CAP (LYRICA) PO SCH (21:09)
[2017-01-31] MEDS: FERROUS SULFATE 325MG TAB PO SCH (21:10)
[2017-01-31] MEDS: CLOPIDOGREL 75 MG TAB PO SCH (21:10)
[2017-01-31] MEDS: FINASTERIDE 5 MG TAB PO SCH (21:10)
--- NOTE | 2017-01-31 21:33 | IPN ---
DATE: 01/31/2017 The patient was seen and examined. Continued to have dyspnea and the patient desaturates with any type of exertion, including sitting up and standing. The patient is morbidly obese. Denies any chest pain, pressure or discomfort. Denies any fevers or chills. VITAL SIGNS: Current temperature 99.4, pulse 78, respirations 20, blood pressure 138/60, pulse oximetry 93% on 2 liters nasal cannula. LABORATORY DATA: WBC 8.2, hemoglobin and hematocrit 8.6/26.4, platelets 122. Chemistry: Sodium 138, potassium 4.1, chloride 102, bicarbonate 30, BUN 30, creatinine 4.87. PHYSICAL EXAMINATION: GENERAL: The patient is morbidly obese, resting comfortably in no acute distress. HEENT: Normocephalic, atraumatic. PULMONARY: Decreased breath sounds bilaterally. Rales in bilateral base. CARDIAC: Regular rate and rhythm. 1/6 systolic murmur. ABDOMEN: Soft, nontender. NECK: Jugular venous distention (JVD) present. EXTREMITIES: 1+ bilateral lower extremity edema. ASSESSMENT AND PLAN: This is a 72-year-old male patient of Dr. Martin with underlying medical history of end stage renal disease on peritoneal dialysis, questionable poor compliance, insulin dependent diabetes, coronary arterial disease with stents, hypertension, dyslipidemia, diabetic neuropathy, who presented tremulous and generalized weakness. 1. Myoclonic with asterixis. Multiple etiologies, possibly secondary to uremia with his end stage renal disease. Symptoms improved after dialysis. Ammonia level appreciated to be negative. Possibility includes side effect of SSRI. The patient's Lyrica dose is reduced. Mysoline dose has also been reduced. 2. End stage renal disease. Dialysis as per Dr. Dawkins. Continue current medications. 3. Congestive heart failure (CHF) with volume overload. The patient does not make urine, possibly secondary to poor compliance with dialysis. Management of fluid is as per nephrology. 4. Anemia of chronic disease. Followup hemoglobin and hematocrit. 5. Dyslipidemia. Continue statin. 6. Diabetes. Continue insulin with coverage. Followup fingersticks and adjust as needed. 7. Chronic pain. The patient's Lyrica has been reduced. Continue current medication, including OxyIR. 8. Benign prostatic hypertrophy (BPH) . Continue current medication. 9. Coronary artery disease with PCI. Continue Plavix, statin, beta roger. Continue aspirin. 10. Hypertension. Continue beta roger and Lisinopril. 11. Morbid obesity complicating care. 12. Deep vein thrombosis (DVT) prophylaxis. The patient is already on aspirin and Plavix. We will place the patient on thromboembolic compression stockings (TEDS) and sequential compression device (SCD). DISPOSITION: Pending clinical improvement, physical therapy (PT), and further recommendations from nephrology.
--- NOTE | 2017-01-31 22:02 | IPN ---
DATE: 01/31/2017 Mr. Yuen is seen this morning on his bedside. He is currently undergoing peritoneal dialysis in his room. He had one session of hemodialysis yesterday due to worsening weakness and tremors. It was felt that the patient probably has developed uremic syndrome due to under-dialysis. He is feeling a little better today and reports that weakness and tremors have improved to a certain extent. He denies any nausea or vomiting and reports that he had a good breakfast. There is no dyspnea or chest pain today. PHYSICAL EXAMINATION: Temperature 97.8 degrees Fahrenheit, heart rate 72 per minute, respiratory rate 20 per minute, blood pressure 167/75 mm of mercury, and oxygen saturation 92% on 2 liters oxygen. Head is atraumatic. Ears, nose and throat are unremarkable. Neck veins are mildly distended. There is no thyroid enlargement. Heart sounds are regular, and lungs sound clear to auscultation. Abdomen soft, obese, and nontender. Peritoneal dialysis catheter is intact. Extremities have no cyanosis or clubbing. Skin has no rash or ulcers. Neurologically he is awake, alert, and oriented times three. He still has mild tremors of his both upper extremities. Today's labs show WBC count 8.2, hemoglobin 8.6, hematocrit 26.4, platelets 122. Sodium 138, potassium 4.1, BUN 30, creatinine 4.87, glucose 191, and calcium 8.6. PROBLEMS: 1. Shortness of breath. His volume status has improved significantly. He had 2.5 liters negative fluid balance yesterday both with hemodialysis and peritoneal dialysis. His weight is down by about 4 kg since admission. He will continue with peritoneal dialysis today, and we will try to achieve further negative fluid balance. 2. Generalized weakness and tremors, probably related to uremia caused by poor function of peritoneal dialysis. I have discussed with the patient about possibility of switching him back to hemodialysis. He is thinking about it, and he will need to arrange transportation for three times a week dialysis. At present our plan is to perform hemodialysis again on February 01 and continue with peritoneal dialysis today. 3. Anemia. The patient has iron deficiency, and we will give him intravenous iron once his medical condition optimizes. At present, there is no active bleeding, and he will receive Aranesp once a week with dialysis. 4. Hypertension. Blood pressure is reasonably well controlled and will continue with current antihypertensive medications. 5. Coronary artery disease and congestive heart failure. The patient has no symptoms of coronary artery disease at present, and his dyspnea has already improved. Will continue to push for negative fluid balance with dialysis.
[2017-02-01] MEDS ORDERED: diphenhydrAMINE INJ 50MG/ML VIAL (J1200) IV ONE (00:15)
[2017-02-01 04:02] VITALS: BP_SYST 121; BP_SYST 130; BP_SYST 131; BP_DIAS 58; BP_DIAS 59; BP_DIAS 62
[2017-02-01 06:13] LABS: MEAN CORPUSCULAR HEMOGLOBIN 29.9 pg (27.0-33.0); MEAN CORPUSCULAR HGB CONC 32.5 g/dl (32.0-36.5); MEAN CORPUSCULAR VOLUME 92.1 fl (80.0-96.0); RED CELL DISTRIBUTION WIDTH 14.2 % (11.5-14.5); WHITE BLOOD COUNT 5.8 K/mm3 (4.0-10.0)
[2017-02-01 06:22] LABS: CALCIUM LEVEL 7.8 MG/DL (8.8-10.2); CREATININE FOR GFR 5.6 MG/DL (0.70-1.30); GLOMERULAR FILTRATION RATE 10.7 (>42); MAGNESIUM LEVEL 2.1 MG/DL (1.8-2.4); POTASSIUM SERUM 3.6 MEQ/L (3.5-5.1)
[2017-02-01] MEDS: oxyCODONE 5MG TAB PO PRN (06:35)
[2017-02-01] MEDS: SLF 3 ML SYR IV SCH ×3 (06:36→22:02)
[2017-02-01] MEDS: PRIMIDONE 50 MG TAB PO SCH ×2 (06:36→22:00)
[2017-02-01] MEDS: NEPHRO-VIT TAB (NEPHROCAPS) PO SCH (06:36)
[2017-02-01] MEDS: FOLIC ACID 1 MG TAB PO SCH (06:39)
[2017-02-01] MEDS: CARVedilol 12.5 MG TAB PO SCH ×2 (06:42→22:02)
[2017-02-01] MEDS: LISINOPRIL 20 MG TAB PO SCH ×2 (06:42→22:01)
[2017-02-01 08:00] VITALS: BP 139/65
[2017-02-01] MEDS: HumaLOG INSULIN (NovoLOG) PER UNIT SC SCH ×4 (09:00→21:00)
[2017-02-01] MEDS ORDERED: HEPARIN 1,000 UNITS/ML 10ML VIAL (FOR RADIOLOGY& DIALYSIS ONLY) IV ONE (13:00)
[2017-02-01] MEDS: NYSTATIN 100,000 UNITS/GM TOPICAL PWD 15 GM TOP SCH ×2 (14:10→22:03)
[2017-02-01 16:00] VITALS: BP_SYST 132; BP_SYST 133; BP_SYST 135; BP_DIAS 58; BP_DIAS 61; BP_DIAS 62
[2017-02-01 20:00] VITALS: BP 111/53
[2017-02-01] MEDS: CYANOCOBALAMIN 500 MCG TAB PO SCH (22:00)
[2017-02-01] MEDS: ATORVASTATIN 20 MG TAB PO SCH (22:00)
[2017-02-01] MEDS: PREGABALIN 50 MG CAP (LYRICA) PO SCH (22:01)
[2017-02-01] MEDS: FINASTERIDE 5 MG TAB PO SCH (22:01)
[2017-02-01] MEDS: ASPIRIN 81 MG ENTERIC TAB PO SCH (22:01)
[2017-02-01] MEDS: OMEPRAZOLE 20 MG CAP PO SCH (22:01)
[2017-02-01] MEDS: FERROUS SULFATE 325MG TAB PO SCH (22:01)
[2017-02-01] MEDS: CLOPIDOGREL 75 MG TAB PO SCH (22:01)
[2017-02-01] MEDS: FLUoxetine 20 MG CAP PO SCH (22:38)
[2017-02-01 23:59] VITALS: BP 101/46
[2017-02-02] VITALS (9 sets, daily range): BP systolic 98–145; BP diastolic 42–71
--- NOTE | 2017-02-02 01:13 | IPN ---
DATE: 02/01/2017 Patient seen and examined. No acute events overnight. Continues to have dyspnea on exertion. Denies any fevers, chills, chest pain, pressure, or discomfort. Was found to be slightly anemic this morning, worse than before. Consented for transfusion, to be given during dialysis. Unfortunately, patient's blood match is not available by the time of dialysis. Will hold off transfusion, given do not want the patient to be getting more fluid overloaded. Will continue to monitor hemoglobin and hematocrit. Patient denies any chest pain, pressure, discomfort, fevers, or chills. VITAL SIGNS: Temperature 98.1, pulse 18, blood pressure 132/58, pulse oximetry 92% on room air. LABORATORY DATA: WBC 5.8, hemoglobin and hematocrit 8/24.6, platelets 123. Chemistry: Sodium 138, potassium 3.6, chloride 98, bicarbonate 29, BUN 38, creatinine 5.6. PHYSICAL EXAMINATION: GENERAL: Patient morbidly obese, resting comfortable in no acute distress. HEENT: Normocephalic, atraumatic. PULMONARY: Decreased breath sounds bilateral. Mild rales, bilateral base. CARDIAC: Regular rate and rhythm. A 1/6 systolic murmur. ABDOMEN: Soft, nontender. Negative jugular venous distention (JVD) present. EXTREMITIES: 1+ bilateral lower extremity edema. ASSESSMENT AND PLAN: This is a 72-year-old male patient of Dr. Martin with underlying medical history of end-stage renal disease, on peritoneal dialysis, questionable poor compliance, insulin-dependent diabetes, coronary artery disease with stents, hypertension, dyslipidemia, diabetic neuropathy presented with tremulous and generalized weakness. 1. Myoclonic with asterixis. Multiple etiology, possibly secondary to uremia with patient's end-stage renal disease and possibly poor compliance with peritoneal dialysis. Symptoms improved after hemodialysis. Ammonia level is negative. Patient's selective serotonin reuptake inhibitor (SSRI) has also been adjusted. Lyrica dose has been reduced. Mysoline dose has also been reduced. 2. End-stage renal disease. Dialysis as per Dr. Dawkins. Continue current medication. Patient might benefit from switching to hemodialysis but needs further help with arrangements for transportation. Patient and family services (PFS) has been involved. 3. Congestive heart failure (CHF) with volume overload. Patient does not make urine, possibly secondary to poor compliance with dialysis. Management of fluid as per nephrology. 4. Anemia of chronic disease. Followup hemoglobin and hematocrit. 5. Dyslipidemia. Continue statin. 6. Diabetes. Continue insulin with coverage. Followup fingerstick and adjust as needed. 7. Chronic pain. Patient's Lyrica has been reduced. Continue current medication, including OxyIR. 8. Benign prostatic hypertrophy (BPH). Continue current medication. 9. Coronary artery disease. Patient on aspirin, Plavix, statin, and beta blockers. 10. Hypertension. Continue beta roger and lisinopril. 11. Morbid obesity complicated care. 12. Deep vein thrombosis (DVT) prophylaxis. Patient is already on aspirin and Plavix. Will place the patient on sequential compression devices. DISPOSITION: Pending physical therapy, clinical improvement, further discussion regarding patient's dialysis.
[2017-02-02] MEDS: SLF 3 ML SYR IV SCH ×3 (04:16→21:58)
[2017-02-02 06:33] LABS: MEAN CORPUSCULAR HEMOGLOBIN 29.6 pg (27.0-33.0); MEAN CORPUSCULAR HGB CONC 31.8 g/dl (32.0-36.5); MEAN CORPUSCULAR VOLUME 93.2 fl (80.0-96.0); WHITE BLOOD COUNT 6.6 K/mm3 (4.0-10.0)
[2017-02-02 07:20] LABS: CALCIUM LEVEL 8.3 MG/DL (8.8-10.2); CREATININE FOR GFR 4.04 MG/DL (0.70-1.30); GLOMERULAR FILTRATION RATE 15.6 (>42); MAGNESIUM LEVEL 2.2 MG/DL (1.8-2.4); POTASSIUM SERUM 4.2 MEQ/L (3.5-5.1)
[2017-02-02] MEDS: PRIMIDONE 50 MG TAB PO SCH ×2 (08:16→21:58)
[2017-02-02] MEDS: NEPHRO-VIT TAB (NEPHROCAPS) PO SCH (08:16)
[2017-02-02] MEDS: HumaLOG INSULIN (NovoLOG) PER UNIT SC SCH ×4 (08:16→20:24)
[2017-02-02] MEDS: FOLIC ACID 1 MG TAB PO SCH (08:16)
[2017-02-02] MEDS: CARVedilol 12.5 MG TAB PO SCH ×2 (08:17→21:56)
[2017-02-02] MEDS: LISINOPRIL 20 MG TAB PO SCH ×2 (08:17→21:56)
[2017-02-02] MEDS: NYSTATIN 100,000 UNITS/GM TOPICAL PWD 15 GM TOP SCH ×2 (08:19→21:58)
--- NOTE | 2017-02-02 10:44 | IPN ---
DATE OF VISIT: 02/01/2017 Mr. Yuen is seen this morning on his bedside. He is currently in hemodialysis. He has continued with peritoneal dialysis, however, we have decided to do additional hemodialysis in order to possible uremic symptoms. I feel that he was under dialyzed with peritoneal dialysis due to missed dialysis treatments or inadequate dialysis prescription. In any event, he was admitted with generalized weakness, shortness of breath and jerky movements of his upper extremities. His shortness of breath has improved but he still gets short of breath on exertion. He denies any chest pain or palpitations. He is also noticed to have worsening anemia. He is going to have 1 unit of packed RBCs transfused today during dialysis. On physical exam, patient is awake and alert and without any acute distress. Temperature 98.4 degrees Fahrenheit, heart rate 64 per minute and respiratory rate 20 per minute. Blood pressure 139/65 mmHg and oxygen saturation 95% on room air. Head is atraumatic. Ears, nose and throat are unremarkable. Neck is supple and JVD is not elevated. There is no thyroid enlargement and no abnormal cervical lymph nodes. His heart sounds are regular and lungs are with slightly diminished breath sounds at bases. Abdomen is obese and nontender. Peritoneal dialysis catheter is in situ. Bowel sounds are normal and there is no palpable organomegaly. Extremities have no cyanosis or clubbing. His right arm AV fistula is functioning well for dialysis. He has no peripheral edema at present. Today's labs show WBC count 5.8, hemoglobin 8.0 and hematocrit 24.6. Platelets 123. Sodium 138 and potassium 3.6. BUN 38 and creatinine 5.60. PROBLEMS: 1. Shortness of breath. His volume status seems to be significantly improved. Today he weighed 122.2 kg, while on admission he was 126.8 kg. At this point, we are removing about 2 liters of fluid with hemodialysis today and we will continue with peritoneal dialysis for additional fluid removal. 2. End-stage renal disease. The patient will continue with peritoneal dialysis. I had a long conversation with him about adequacy of dialysis. We will add a daytime exchange in addition to nightly dialysis on the cycler machine with 15 liters of fluid. At this point, we will not perform anymore hemodialysis sessions. 3. Anemia, most likely related to iron deficiency and end-stage renal disease. The patient will be given intravenous iron and will continue with Mircera as an outpatient. 4. Tremors and jerky movements of upper extremities. Probably related to uremia. I have also started him on Mysoline and his tremors have completely resolved at this point. This will be followed up as an outpatient. 5. Hypertension. Blood pressure is very well controlled on current medications. No changes are indicated. 6. Coronary artery disease. Patient remains asymptomatic and will be continued on his chronic medications. DISPOSITION: I have feel that the patient can be discharged to home tomorrow if he is physically cleared by physical therapy.
--- NOTE | 2017-02-02 17:58 | IPN ---
DATE: 02/02/2017 Mr. Yuen is seen this morning on his bedside. He is feeling much better today and reports that he was able to walk to the bathroom with the help of walker. He does get some dyspnea on exertion. He denies any chest pain or palpitations. He has no fever or chills. He underwent hemodialysis yesterday and continues with peritoneal dialysis five exchanges per day. Blood transfusion was ordered yesterday. However he could not receive it due to problems with cross-matching. PHYSICAL EXAMINATION: Temperature 97.2 degrees Fahrenheit, heart rate 76 per minute and respiratory rate 18 per minute. Blood pressure 126/65 mmHg and oxygen saturation 93% on room air. His weight is down to 119.2 kg from 126.8 kg. His head is atraumatic. Neck veins are only mildly distended. Neck is supple and without thyroid enlargement. Ears, nose and throat are unremarkable. Pupils equal and reactive to light and sclerae is anicteric. Heart sounds are regular and lungs with good bilateral air entry. There is no wheezing or audible rales. Abdomen is obese, nontender and distended with peritoneal dialysis fluid. Bowel sounds are normal. Extremities have no cyanosis or clubbing. Skin has no rash or ulcers. Neurologically he is awake, alert and oriented times three. Upper extremity jerky movements and tremors have completely resolved. Today's labs show WBC count 6.6, hemoglobin 8.1 and hematocrit 25.6. BUN is 25 and creatinine 4.04. Glucose 136 and calcium 8.3. Sodium 136 and potassium 4.2. PROBLEMS: 1. Uremia. The patient had uremia most likely related to inadequate dialysis. Now his dialysis has been augmented with two sessions of hemodialysis and continued peritoneal dialysis. I have discussed with the patient once again today about his condition. He understands that he will need to increase the amount of peritoneal dialysis at home in order to avoid hemodialysis. He has transportation issues and would like to continue with peritoneal dialysis if at all possible. At present there will be no more hemodialysis scheduled and he will continue with five exchanges of peritoneal dialysis per day. 2. Anemia. His anemia is essentially unchanged. The patient will be transfused 2 units of packed red blood cells (RBCs) today. He also has iron deficiency and will be given intravenous iron as an outpatient in dialysis. 3. Hypertension. Blood pressure seems to be well controlled on current medications and no changes are needed. 4. Congestive heart failure (CHF) and shortness of breath. His volume status has improved and he has lost more than 7 kg since admission. He did not get any cramps this time. We will continue with peritoneal dialysis and try to maintain his weight at about 119 kg. DISPOSITION: From a renal standpoint, the patient can be discharged anytime whenever he gets cleared by physical therapy. He understands to resume his peritoneal dialysis at home and I have already given instructions about adding a daytime exchange with 2 liters bag at 12 noon and continue with peritoneal dialysis at night as previously. The patient will followup at outpatient dialysis clinic within the next couple of weeks.
[2017-02-02] MEDS: oxyCODONE 5MG TAB PO PRN (19:44)
--- NOTE | 2017-02-02 20:22 | IPN ---
DATE: 02/02/2017 The patient was seen and examined. No acute events overnight. Denies any fevers, chills, chest pain, pressure or discomfort. Reported respirations much improved. VITAL SIGNS: Temperature 98.9, pulse 71, respirations 20, blood pressure 145/71, pulse oximetry 94% on 0.5 liter nasal cannula. LABORATORY: WBC 6.6, hemoglobin and hematocrit 8.1/25.6, platelets 138. Chemistry: Sodium 136, potassium 4.2, chloride 102, bicarbonate 25, BUN 25, creatinine 4.04 PHYSICAL EXAMINATION: GENERAL: The patient is morbidly obese, resting comfortably in no acute distress. HEENT: Normocephalic, atraumatic. PULMONARY: Decreased breath sounds bilateral bases. Mild rales in bilateral bases. CARDIAC: Regular rate and rhythm. 1/6 systolic murmur. ABDOMEN: Soft, nontender. Positive bowel sounds. EXTREMITIES: 1+ bilateral lower extremity edema. ASSESSMENT AND PLAN: This is a 72-year-old male patient with Dr. Martin with underlying medical history or end stage renal disease on peritoneal dialysis, questionable poor compliance, insulin-dependent diabetes, coronary arterial disease with stents, hypertension, dyslipidemia, diabetic neuropathy, who presented and was tremulous and generalized weakness. 1. Myoclonic with asterixis. Multiple etiologies, possibly secondary to uremia, end stage renal disease and poor compliance with peritoneal dialysis. Symptoms improved after hemodialysis. Ammonia level negative. The patient's SSRI has been reduced and adjusted. Lyrica has been reduced. Mysoline has also been reduced. 2. End stage renal disease. Dialysis as per Dr. Dawkins. Continue current medications. The patient might benefit from switching to hemodialysis, but has agreed to pursue a different peritoneal dialysis regimen for a trial. Patient and family services (PFS) consulted for additional services. 3. Congestive heart failure (CHF) with fluid overload. The patient does not make urine, possibly secondary to poor compliance with dialysis. Management of fluid as per nephrology. 4. Anemia of chronic disease. Followup hemoglobin and hematocrit. 5. Dyslipidemia. Continue statin. 6. Diabetes. Insulin with coverage. Followup fingersticks and adjust as needed. 7. Chronic pain. The patient's Lyrica has been reduced. Continue current medications. 8. Benign prostatic hypertrophy (BPH) . Continue current medications. 9. Coronary arterial disease. Aspirin and Plavix, statin, beta blockers. 10. Hypertension. Continue beta roger and Lisinopril. 11. Morbid obesity complicating care. Deep vein thrombosis (DVT) prophylaxis. The patient is already on aspirin and Plavix. We will place the patient on sequential compression device (SCD) given the patient's anemia. DISPOSITION: Physical therapy (PT), clinical improvement. We will arrange for outpatient oxygen if the patient qualifies.
[2017-02-02] MEDS: FLUoxetine 20 MG CAP PO SCH (21:54)
[2017-02-02] MEDS: FERROUS SULFATE 325MG TAB PO SCH (21:54)
[2017-02-02] MEDS: ASPIRIN 81 MG ENTERIC TAB PO SCH (21:54)
[2017-02-02] MEDS: CYANOCOBALAMIN 500 MCG TAB PO SCH (21:55)
[2017-02-02] MEDS: CLOPIDOGREL 75 MG TAB PO SCH (21:57)
[2017-02-02] MEDS: PREGABALIN 50 MG CAP (LYRICA) PO SCH (21:57)
[2017-02-02] MEDS: ATORVASTATIN 20 MG TAB PO SCH (21:57)
[2017-02-02] MEDS: OMEPRAZOLE 20 MG CAP PO SCH (21:57)
[2017-02-02] MEDS: FINASTERIDE 5 MG TAB PO SCH (21:58)
[2017-02-03 05:07] LABS: MEAN CORPUSCULAR HEMOGLOBIN 29.3 pg (27.0-33.0); MEAN CORPUSCULAR VOLUME 88.9 fl (80.0-96.0); RED CELL DISTRIBUTION WIDTH 14.4 % (11.5-14.5); WHITE BLOOD COUNT 6.4 K/mm3 (4.0-10.0)
[2017-02-03 05:29] LABS: CALCIUM LEVEL 7.9 MG/DL (8.8-10.2); CREATININE FOR GFR 5.15 MG/DL (0.70-1.30); GLOMERULAR FILTRATION RATE 11.8 (>42); MAGNESIUM LEVEL 1.8 MG/DL (1.8-2.4); POTASSIUM SERUM 3.5 MEQ/L (3.5-5.1)
[2017-02-03 06:00] VITALS: BP 137/77
[2017-02-03] MEDS: SLF 3 ML SYR IV SCH ×2 (06:00→13:46)
[2017-02-03] MEDS ORDERED: POTASSIUM CHLORIDE 10 MEQ SR TABLET PO ONE (08:15)
[2017-02-03] MEDS: HumaLOG INSULIN (NovoLOG) PER UNIT SC SCH ×2 (08:19→12:24)
[2017-02-03 08:20] VITALS: BP 137/77
[2017-02-03] MEDS: FOLIC ACID 1 MG TAB PO SCH (08:20)
[2017-02-03] MEDS: PRIMIDONE 50 MG TAB PO SCH (08:20)
[2017-02-03] MEDS: CARVedilol 12.5 MG TAB PO SCH (08:20)
[2017-02-03] MEDS: LISINOPRIL 20 MG TAB PO SCH (08:20)
[2017-02-03] MEDS: NYSTATIN 100,000 UNITS/GM TOPICAL PWD 15 GM TOP SCH (08:21)
[2017-02-03] MEDS: NEPHRO-VIT TAB (NEPHROCAPS) PO SCH (08:21)
[2017-02-03] MEDS ORDERED: FOLI1TAB2 PO (12:43)
[2017-02-03] MEDS ORDERED: FLUO20CA9 PO (12:43)
[2017-02-03] MEDS ORDERED: MYSO50TA5 PO (12:43)
[2017-02-03] MEDS ORDERED: PREG50CA PO (12:43)
[2017-02-03] MEDS ORDERED: NEPHTA PO (12:43)
[2017-02-03] MEDS ORDERED: ATOR1TAB21 PO (12:43)
--- NOTE | 2017-02-04 15:27 | IPN ---
DATE OF SERVICE: 02/03/2017 SUBJECTIVE: The patient was seen and examined at the bedside today in the morning. He denies any active complaints. He is hemodynamically stable. He is tolerating the peritoneal dialysis well. Weight is improving. REVIEW OF SYSTEMS: The patient denies any fever, chills, rigors, headache, nausea, vomiting, chest pain, shortness of breath, pain abdomen, constipation, or diarrhea. Rest of review of systems is negative. OBJECTIVE: VITAL SIGNS: Temperature is 96.7 degrees Fahrenheit, blood pressure is 137/77, pulse is 85, respiratory rate of 18, saturating 99% on room air. INTAKE AND OUTPUT: Urine output is not recorded well. His peritoneal dialysis output was 10 liters yesterday and 4.7 liters so far today since overnight. Weight on the bed scale is 118.7 kg today. It was 119.2 kg yesterday. PHYSICAL EXAMINATION: GENERAL: The patient is awake, alert, oriented times three, lying in bed. He is morbidly obese. No apparent distress. HEAD AND NECK EXAMINATION: Extraocular muscles intact. Pupils equally round and reactive to light. Mucous membranes are moist. Neck is supple. There is no jugular venous distention (JVD). CARDIOVASCULAR: S1, S2, regular rate. No murmur, rub, and gallop. RESPIRATORY: Chest is clear to auscultation bilaterally. Bilateral equal air entry. No rales or rhonchi. ABDOMEN: Soft. Distended. Positive bowel sounds. Nontender. He has a left lower quadrant peritoneal dialysis catheter and access site is clean. EXTREMITIES: No clubbing or cyanosis. Pulses are 2+. 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 Power is 5/5 in all extremities. PSYCHIATRIC: Normal mood and affect. LABORATORY REVIEW: CBC showed WBC of 6.4, hemoglobin 9.4, platelets of 125. BMP showed sodium 138, potassium 3.5, chloride 98, bicarbonate 31, BUN 38, creatinine is 5.1, magnesium is 1.8. CURRENT MEDICATIONS: The patient's medications were all reviewed by me. There is no change in the medications today as compared with yesterday. ASSESSMENT: A 72-year-old male with past medical history of end-stage renal disease on peritoneal dialysis. This admission with uremia. Nephrology service following the patient for management of end-stage renal disease. PLAN: 1. Uremia. The patient was dialyzed through his AV fistula. He got two sessions of hemodialysis. His uremia is significantly better. His peritoneal dialysis prescription has been changed, as well. The patient will do daytime exchanges, as well, now. He continues to get daytime exchanges while he is here in the hospital, as well. The patient would go home on cycler, along with daytime exchange and followup with Dr. Dawkins as outpatient. 2. Anemia in end-stage renal disease. The patient got 2 units of packed cell transfusion with hemodialysis. His hemoglobin is improved at 9.4 today. The rest of the anemia management would be according to outpatient anemia protocol. 3. Hypertension. Blood pressure is acceptable at this time. Continue current antihypertensive regimen. 4. Congestive heart failure and fluid overload. The patient got hemodialysis and ultrasound with hemodialysis was done, as well; and after increasing his peritoneal dialysis regimen, he continues to lose weight. His weight is 118.7 kg today. His volume status is significantly improving. Continue the current peritoneal dialysis regimen. DISCHARGE PLANNING: It is okay to discharge the patient from nephrology standpoint. The patient will followup with nephrology as outpatient about 1-2 weeks after discharge. The patient already knows that he is supposed to do daytime exchange of 2 liters at noontime and continue the nighttime cycler. The plan of care was discussed with the hospitalist team.
--- NOTE | 2017-02-05 00:08 | DSES ---
DATE OF ADMISSION: 01/29/2017 DATE OF DISCHARGE: 02/03/2017 NIBBLER OPERATOR: Dr. Dawkins and Dr. Phan PRIMARY CARE PROVIDER: Dr. Guallpa FINAL DIAGNOSES: 1. Deconditioning. 2. Myoclonus with asterixis, likely secondary to uremia. 3. Poor compliance. 4. End stage renal disease. 5. Congestive heart failure (CHF). 6. Fluid overload. 7. Anemia of chronic disease. 8. Dyslipidemia. 9. Diabetes. 10. Morbid obesity. 11. Chronic pain. 12. Benign prostatic hypertrophy (BPH). 13. Coronary arterial disease. 14. Hypertension. HISTORY OF PRESENT ILLNESS: This is a 72-year-old male patient with underlying medical history of end stage renal disease on peritoneal dialysis, insulin-dependent diabetes, morbid obesity, coronary arterial disease with PCI, hypertension, dyslipidemia, diabetic neuropathy, who presented with complaint of generalized weakness and tremulousness. The patient states that he has been feeling sick since , complaining of being tremulous with flopping tremors, likely motions in his hand. The patient states that he walks with a cane at baseline; however, has been having increased generalized weakness and has been having difficulty walking. Denies any focal weakness, slurred speech, facial drooping. The patient denies any chest pain, shortness of breath, palpitations, nausea, vomiting, or abdominal pain. No fevers. Has reported increased swelling in bilateral lower extremities and abdomen with some increased dyspnea. HOSPITALIZATION COURSE: The patient was admitted to the hospital. Echocardiogram was done. Nephrology was consulted. The patient was dialyzed as well for fluid removal. As per nephrology, likely the patient was uremic given poor compliance. Ammonia level has been negative. The patient's SSRI and pain medications were reduced. The patient's symptoms progressively improved. Patient and family services (PFS) was consulted for additional service. Physical therapy (PT) was done. The patient will need home physical therapy. The patient's fluid status has improved as well. Transfused 1 unit of packed red blood cell for anemia of chronic disease. Case discussed with nephrology. The patient is tolerating oral and passed physical therapy with recommendation of home with physical therapy. The patient is tolerating oral and is ready for discharge. Discussed with the patient if he wanted to pursue hemodialysis versus another trial of peritoneal dialysis with continuous nightly exchange. The patient opted for continuous exchange at night with intermittent exchanges during the daytime. Deputy Clerk Of Superior Court will follow the patient on the outside to see if the patient is tolerating. If not, we will pursue hemodialysis. VITAL SIGNS: Temperature 96.7, pulse 85, respirations 18, blood pressure 137/77, pulse oximetry 99% on room air. LABORATORY DATA: WBC 6.4, hemoglobin and hematocrit 9.4/28.5, platelets 125. Chemistry: Sodium 138, potassium 3.5, chloride 98, bicarbonate 31, BUN 38, creatinine 5.15. DISCHARGE MEDICATIONS: - Lipitor 40 mg by mouth at night - fluoxetine 20 mg by mouth at night - Lyrica 50 mg by mouth at night - primidone 50 mg by mouth twice a day - Nephrocaps one capsule by mouth daily The patient's home medication of: - acetaminophen 650 mg every four hours as needed - vitamin C - aspirin 81 mg by mouth at night - Coreg 25 mg by mouth twice a day - Plavix 75 mg by mouth at night - Coenzyme Q10 100 mg by mouth at night - vitamin B12 1000 mcg by mouth at night - ferrous sulfate 325 mg by mouth at night - finasteride 5 mg by mouth at night - glipizide 5 mg by mouth at night - Lantus 50 units subcutaneously at night - Lisinopril 20 mg by mouth twice a day - milk of magnesia 30 mL daily as needed - mupirocin 2% ointment topical as directed - nitroglycerin 0.4 sublingually as needed - omega 3 fatty acid one capsule by mouth at night - omeprazole 40 mg by mouth at night - oxycodone 5 mg by mouth four times a day as needed - Senna 8.6 mg by mouth at night - vitamin D 50,000 units by mouth weekly Were continued. DISCHARGE INSTRUCTIONS: The patient is instructed to followup with primary care provider in 7 days and followup with electrical and electronic assembler in 7 days. Continue to do peritoneal dialysis. Return to the hospital if symptoms worsen.
== END 2017-02-03 14:45 | disposition home or self-care (01) | DRG 91 ==
LOC: EDBD 09:18 → M ED 12:06 → M ED INP 13:34 → M PCU 15:22 → M MSPAV 02-02 16:04
PROVIDERS: ADMIT Internal Medicine; ATTEND Hospitalist
PROC: 5A1D00Z (ICD-10-PCS; 2017-01-30)
PROC: 30233N1 Transfusion of Nonautologous Red Blood Cells into Peripheral Vein, Percutaneous Approach (ICD-10-PCS; principal; 2017-02-02)
DX: G25.3 Myoclonus (principal); N18.6 End stage renal disease; I13.2 Hypertensive heart and chronic kidney disease with heart failure and with stage 5 chronic kidney disease, or end stage renal disease; I50.32 Chronic diastolic (congestive) heart failure; E46 Unspecified protein-calorie malnutrition; R27.8 Other lack of coordination; D63.1 Anemia in chronic kidney disease; E78.5 Hyperlipidemia, unspecified; E87.70 Fluid overload, unspecified; E11.40 Type 2 diabetes mellitus with diabetic neuropathy, unspecified; E66.01 Morbid (severe) obesity due to excess calories; N40.0 Benign prostatic hyperplasia without lower urinary tract symptoms; I25.10 Atherosclerotic heart disease of native coronary artery without angina pectoris; Z91.19 Patient's noncompliance with other medical treatment and regimen; Z99.2 Dependence on renal dialysis; Z79.82 Long term (current) use of aspirin; Z79.4 Long term (current) use of insulin; Z79.02 Long term (current) use of antithrombotics/antiplatelets; Z79.899 Other long term (current) drug therapy; Z87.891 Personal history of nicotine dependence; Z95.5 Presence of coronary angioplasty implant and graft; Z91.09 Other allergy status, other than to drugs and biological substances

== ENCOUNTER → 2017-02-14 | Outpatient (REF) | payer MEDICARE, BC ==
[~2017-02-14] MED LIST changes: +ATOR1TAB18 PO; +ATOR1TAB21 PO; +CLOP75TA2 PO; +CO Q100C10 PO; +FLUO20CA9 PO; +FOLI1TAB2 PO; +GLIP5TAB15 PO; +LYRI100C10; +LYRI100C10 PO; +MILKSUS PO; +MYSO50TA5 PO; +NEPHTA PO; +NITR4TASL SL; +OMEP40CA2 PO; +PRAV20TA2; +PREG50CA PO; +SENN8.6T10 PO; +VITA50003; +VITA500C24 PO
== END ==
LOC: CANPREREF → M LAB REF 13:13
PROVIDERS: ATTEND Internal Medicine Cardiovascular Disease
DX: R07.9 Chest pain, unspecified (principal); I25.10 Atherosclerotic heart disease of native coronary artery without angina pectoris; Z53.9 Procedure and treatment not carried out, unspecified reason

== ENCOUNTER → 2017-02-16 | Outpatient (REF) | payer MEDICARE, BC | LOC: M LAB REF 12:51 | PROVIDERS: ATTEND Nurse Practitioner Family | DX: R07.9 Chest pain, unspecified (principal) ==

== ENCOUNTER 2017-08-30 17:19 | Inpatient (IN) | payer MEDICARE, BC ==
[~2017-08-30] VITALS: Ht 188 cm; Wt 125.0 kg
[~2017-08-30 17:19] MED LIST changes: +ASPI-101 PO; -ASPI81TA11 PO; -ATOR1TAB18 PO; +ATOR80TA59 PO; -CART240C PO; +CART240C3 PO; -CO Q200C PO; +CO Q200C10 PO; -DOCU100C PO; +DOCU100C16 PO; +FLUO20CA19 PO; -FLUO20CA9 PO; -FOLI1TAB2 PO; +FOLI1TAB4 PO; +GLIP1TAB49 PO; -GLIP5TAB15 PO; +HYDR-3911 PO; -HYDR-4267 PO; -LOSA100T PO; +LOSA100T8 PO; -LYRI100C10; -LYRI100C10 PO; -OXYC1SOL PO; +OXYC1SOL3 PO; +PREG100CA; +PREG100CA PO; +SENN1TAB10 PO; -SENN8.6T10 PO; +VITA1CAP40; -VITA50003
[2017-08-30] MEDS ORDERED: FLUO40CA PO (17:43)
[2017-08-30] MEDS ORDERED: CALC1CAP PO (17:43)
[2017-08-30] MEDS ORDERED: LYRI300C PO (17:43)
[2017-08-30 18:04] LABS: BASO % 0.1 % (0.0-1.0); EOS # 0.1 10^3/uL (0.0-0.50); EOS % 1.9 % (0.0-3.0); IMMATURE GRANULOCYTE % 0.1 % (0-0); LYMPH # 0.7 10^3/uL (1.5-4.5); LYMPH % 9.6 % (24.0-44.0); MEAN CORPUSCULAR HEMOGLOBIN 33.6 pg (27.0-33.0); MEAN CORPUSCULAR HGB CONC 32.9 g/dl (32.0-36.5); MONO # 0.6 10^3/uL (0.0-0.8); NEUTROPHILS % 80.3 % (36.0-66.0); PLATELET COUNT, AUTOMATED 107 10^3/uL (150-450); RED CELL DISTRIBUTION WIDTH 15.4 % (11.5-14.5); WHITE BLOOD COUNT 7.5 10^3/uL (4.0-10.0)
--- NOTE | 2017-08-30 18:15 | REP ---
Portable chest, 05:46 p.m.: Comparison is 01/31/2017. There is diffuse interstitial coarsening. This is improved from the comparison study. This could represent chronic or recurrent acute interstitial disease. There is cardiomegaly and pacemaker are unchanged. Signed by Tommie Johnson MD 08/30/2017 06:07 P
[2017-08-30 18:16] LABS: INR 1.1
[2017-08-30 18:35] LABS: ALBUMIN 2.7 GM/DL (3.2-5.2); ALBUMIN/GLOBULIN RATIO 0.64 (1.00-1.93); ALKALINE PHOSPHATASE 76 U/L (45-117); ALT/SGPT 17 U/L (12-78); ANION GAP 10 MEQ/L (8-16); AST/SGOT 7 U/L (7-37); BILIRUBIN,DIRECT < 0.1 MG/DL (0.0-0.2); BILIRUBIN,TOTAL 0.4 MG/DL (0.2-1.0); BLOOD UREA NITROGEN 56 MG/DL (7-18); CALCIUM LEVEL 7.3 MG/DL (8.8-10.2); CARBON DIOXIDE LEVEL 29 MEQ/L (21-32); CHLORIDE LEVEL 104 MEQ/L (98-107); CREATININE FOR GFR 7.96 MG/DL (0.70-1.30); GLOMERULAR FILTRATION RATE 7.1 (>42); GLUCOSE, FASTING 213 MG/DL (83-110); SODIUM LEVEL 143 MEQ/L (136-145); TOTAL PROTEIN 6.9 GM/DL (6.4-8.2)
--- NOTE | 2017-08-30 19:17 | ECGEPIP ---
Stationary ECG Study 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
[2017-08-30] MEDS ORDERED: HumaLOG INSULIN (NovoLOG) PER UNIT SC SCH (21:00)
[2017-08-30] MEDS: VITAMIN D 50,000 UNITS CAPSULE (ERGOCALCIFEROL 1.25MG) PO SCH (21:00)
[2017-08-30] MEDS ORDERED: ATORVASTATIN 20 MG TAB PO SCH (21:00)
[2017-08-30] MEDS: FINASTERIDE 5 MG TAB PO SCH (21:00)
[2017-08-30] MEDS ORDERED: LEVEMIR (INSULIN DETEMIR) 1 UNITS/0.01ML SC SCH (21:00)
[2017-08-30] MEDS ORDERED: CLOPIDOGREL 75 MG TAB PO SCH (21:00)
[2017-08-30] MEDS: CYANOCOBALAMIN 500 MCG TAB PO SCH (21:00)
[2017-08-30] MEDS ORDERED: OMEPRAZOLE 20 MG CAP PO SCH (21:00)
[2017-08-30] MEDS ORDERED: FERROUS SULFATE 325MG TAB PO SCH (21:00)
[2017-08-30] MEDS ORDERED: ASPIRIN 81 MG ENTERIC TAB PO SCH (21:00)
[2017-08-30] MEDS ORDERED: FLUoxetine 20 MG CAP PO SCH (21:00)
[2017-08-30] MEDS ORDERED: ENOXAPARIN 120 MG/0.8 ML SYR (J1650) SC ONE (22:45)
[2017-08-30] MEDS ORDERED: CARVedilol 12.5 MG TAB PO ONE (22:45)
[2017-08-30] MEDS ORDERED: CALC1CAP31 PO (23:32)
[2017-08-30] MEDS ORDERED: PREG100CA PO (23:32)
[2017-08-30] MEDS ORDERED: ASPI81TAEC PO (23:32)
[2017-08-30] MEDS ORDERED: ATOR80TA59 PO (23:32)
[2017-08-30] MEDS ORDERED: MIRA33504 PO (23:32)
[2017-08-30] MEDS ORDERED: STOO1CAP7 PO (23:32)
[2017-08-30] MEDS ORDERED: RENATAB5 PO (23:32)
[2017-08-30] MEDS ORDERED: TORS100T PO (23:32)
[2017-08-30] MEDS ORDERED: MUPIROCIN 2% OINT 22 GM TUBE TOP PRN (23:45)
[2017-08-30] MEDS ORDERED: MIRALAX *UNIT DOSE* 17GM PACKET PO PRN (23:45)
[2017-08-30] MEDS ORDERED: MOM 30ML SUSPENSION UDC PO PRN (23:45)
[2017-08-30] MEDS ORDERED: ACETAMINOPHEN TAB 650MG DOSE (2X325MG) PO PRN (23:45)
[2017-08-30] MEDS ORDERED: oxyCODONE 5MG TAB PO PRN (23:45)
[2017-08-30] MEDS ORDERED: SENNA 8.6 MG TAB (SENOKOT) PO PRN (23:45)
[2017-08-31] MEDS ORDERED: GLUCAGON FOR INJ 1 MG VIAL (J1610) SC PRN
[2017-08-31] MEDS ORDERED: DEXTROSE 50% 50 ML SYRINGE IV PRN
[2017-08-31] MEDS ORDERED: GLUCOSE 4 GM CHEW TABLET PO PRN
[2017-08-31] MEDS: VITAMIN D 50,000 UNITS CAPSULE (ERGOCALCIFEROL 1.25MG) PO SCH (00:56)
[2017-08-31] MEDS: CYANOCOBALAMIN 500 MCG TAB PO SCH (00:56)
[2017-08-31] MEDS: PREGABALIN 100 MG CAP (LYRICA) PO SCH ×2 (00:57→09:11)
[2017-08-31] MEDS: FINASTERIDE 5 MG TAB PO SCH (00:57)
--- NOTE | 2017-08-31 05:33 | HPE ---
DATE OF ADMISSION: 08/30/2017 PRIMARY CARE PROVIDER: Puja Cuenca. 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 Per the patient, he has a significant past medical history including four MIs in the past, status post four stents. First episode occurred in January 2016. The most recent episode occurred in February 2017. The patient has been having intermittent chest pain especially during exertion; however, it became more frequent yesterday after the physical therapy. The patient started having dull pressure-like sensation in the mid chest without radiation, since then resolved after one hour later after he took nitroglycerin. This morning during ambulation in the house, he started having recurrence of the chest pain still the mid-pressure dull-like sensation and he called the ambulance, and since then resolved after he got nitroglycerin in the ambulance. Denies any other associated symptoms. PAST MEDICAL HISTORY: 1. Coronary artery disease, myocardial infarction times four, status post four stents. 2. Congestive heart failure. 3. End-stage renal disease on peritoneal dialysis. 4. Insulin-dependent diabetes. 5. Hypertension. 6. Hyperlipidemia. PAST SURGICAL HISTORY: 1. Pacemaker insertion. 2. Cardiac stent placement times four. 3. Kidney stent for kidney stones. 4. Carpal tunnel (please clarify). 5. Peritoneal dialysis catheter insertion. SOCIAL HISTORY: The patient used to smoke two packs daily for 50 years. Quit after 2004. No alcohol use. No recreational drug use. REVIEW OF SYSTEMS: GENERAL: Denies any fever or chills. HEENT: No vision change, no auditory changes. CARDIOVASCULAR: Significant history of multiple coronary artery disease, most recent episode in February 2017. Complains about dull-like chest pain during exertion. Most recent episode occurred today around 4 p.m. denies any palpitations. RESPIRATORY: No shortness of breath. No cough, no sputum production. GASTROINTESTINAL (GI): No nausea, no vomiting, no abdominal pain, no diarrhea. MUSCULOSKELETAL: No muscle pain, no joint pain. HOME MEDICATIONS: - glipizide 5 mg by mouth at bedtime - nitroglycerin 0.4 mg subcutaneous as needed - docusate sodium 250 mg by mouth daily - aspirin 81 mg by mouth at bedtime - atorvastatin 80 mg by mouth at bedtime - calcitriol 0.25 mg by mouth daily - calcium acetate 667 mg by mouth three times a day - carvedilol 25 mg by mouth twice a day - Plavix 75 mg by mouth at bedtime - vitamin B12 1000 mcg by mouth at bedtime - ferrous sulfate 325 mg by mouth at bedtime - Proscar 5 mg by mouth at bedtime - fluoxetine 40 mg by mouth at bedtime - Lantus 20 units subcutaneous at bedtime - milk of magnesia 30 mL by mouth daily as needed - omeprazole 40 mg by mouth at bedtime - oxycodone 5 mg by mouth four times a day as needed - MiraLAX 17 grams by mouth daily as needed - Lyrica 100 mg by mouth twice a day - senna one tablet by mouth at bedtime as needed - torsemide 50 mg by mouth daily - vitamin D 50,000 units by mouth OBJECTIVE: VITAL SIGNS: Temperature is 98, pulse is 84, respirations 20, blood pressure 141/65, pulse oximetry 96% on room air. GENERAL: No sign of acute distress. Alert and oriented times three. HEENT: Normocephalic, atraumatic. Extraocular motor grossly intact. CARDIOVASCULAR: Positive S1, S2. Very distant heart sounds. Positive systolic murmur. LUNGS: Mild bilateral crackles in the low base. No wheezes appreciated. ABDOMEN: Soft, nontender, nondistended. Bowel sounds present. Peritoneal dialysis catheter in place. EXTREMITIES: No significant edema. No cyanosis. NEUROLOGIC: Sensation to fine touch grossly intact. Muscle strength 5/5. LABORATORY DATA: WBC 7.5, hemoglobin 8.4, hematocrit 25.5, platelet count is 107. Sodium is 143, potassium five, chloride 104, carbon dioxide 29, BUN 56, creatinine 7.96, GFR 7.1, fasting glucose 213, calcium 7.3. Total bilirubin is 0.4, direct bilirubin is less than 0.1. AST seven, ALT 17, alkaline phosphatase 76. Total CK is 92, troponin I times three sets (0.06, 0.1, 0.14). Total protein 6.9, albumin 2.7, lipase 243. TSH is 1.21. IMAGING: Chest x-ray shows cardiomegaly, pacemaker. Diffuse interstitial coarsening. Improved from the previous study. Could represent chronic or recurrent acute interstitial disease. ASSESSMENT AND PLAN: 1. Chest pain with troponin elevations. Electrocardiogram (EKG) showed ventricular paced rhythm. Case was discussed with the supply chain business analyst train electronic technician, Dr. Beverly. Patient will be placed on the therapeutic dose of Lovenox. The patient is on statin and aspirin. Appreciate Dr. Beverly's input. 2. End-stage renal disease on peritoneal dialysis. Nephrology has been consulted. 3. Congestive heart failure. Currently does not have any sign of exacerbation. Continue to monitor intake and output and daily weight. 4. History of coronary artery disease times four, status post four cardiac stents. Aspirin, Plavix, and statin therapy. Cardiology has been consulted. 5. History of stroke diagnosed from the imaging study. No residual. Continue to monitor. 6. Insulin-dependent diabetes. Continue Levemir. Continue consistent carbohydrate diet. Continue sliding scale. 7. Hypertension. Continue home medications. 8. Dyslipidemia. On statin. 9. Deep venous thrombosis (DVT) prophylaxis. Currently patient on therapeutic dose of Lovenox.
--- NOTE | 2017-08-31 05:56 | ECGEPIP ---
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
[2017-08-31 06:41] LABS: MEAN CORPUSCULAR HEMOGLOBIN 33.3 pg (27.0-33.0); MEAN CORPUSCULAR HGB CONC 32.3 g/dl (32.0-36.5); MEAN CORPUSCULAR VOLUME 103.1 fl (80.0-96.0); PLATELET COUNT, AUTOMATED 102 10^3/uL (150-450); RED CELL DISTRIBUTION WIDTH 15.4 % (11.5-14.5); WHITE BLOOD COUNT 7.2 10^3/uL (4.0-10.0)
[2017-08-31 07:04] LABS: CALCIUM LEVEL 7.5 MG/DL (8.8-10.2); CREATININE FOR GFR 8.37 MG/DL (0.70-1.30); GLOMERULAR FILTRATION RATE 6.7 (>42); MAGNESIUM LEVEL 1.6 MG/DL (1.8-2.4); POTASSIUM SERUM 4.4 MEQ/L (3.5-5.1)
[2017-08-31] MEDS ORDERED: HumaLOG INSULIN (NovoLOG) PER UNIT SC SCH (07:30)
[2017-08-31] MEDS ORDERED: CALCIUM ACETATE 667 MG GELCAP PO SCH (08:00)
[2017-08-31] MEDS ORDERED: MAG SULF 1GM/100ML (MAG RUN) 1 GM in APPROPRIATE DILUENT 1 EA IV ONE (08:00)
[2017-08-31 08:17] VITALS: BP 128/60; PULSE 94
[2017-08-31] MEDS ORDERED: NITROGLYCERIN 0.3 MG SUBL TAB SL STA (08:23)
[2017-08-31] MEDS ORDERED: ASPIRIN 81 MG CHEW TABLET PO ONE (08:30)
--- NOTE | 2017-08-31 08:51 | REP ---
Portable chest, a 32 a.m., single AP view, patient sitting: Comparisons are 08/30/2017 and 01/31/2017 and a remote study of 08/16/2016. There are diffuse bilateral interstitial infiltrates. These were also present on 08/30/2017 and 01/31/2017 but not present on 08/16/2016. This could represent chronic, acute or acute on chronic change. Cardiomegaly and pacemaker are again noted. Impression: Chronic versus acute versus acute on chronic interstitial changes. Chronic cardiomegaly and pacemaker. Signed by Tommie Johnson MD 08/31/2017 08:43 A
[2017-08-31 09:00] VITALS: BP 152/72
[2017-08-31] MEDS ORDERED: CALCITRIOL 0.25 MCG CAP (S0169) PO SCH (09:00)
[2017-08-31] MEDS ORDERED: TORSEMIDE (DEMADEX) 50 MG PER 1/2 TAB PO SCH (09:00)
[2017-08-31] MEDS ORDERED: CARVedilol 12.5 MG TAB PO SCH (09:00)
[2017-08-31 09:12] VITALS: BP 152/72
[2017-08-31] MEDS ORDERED: MORPHINE 2 MG/ML 1ML SYRINGE IV PRN (09:45)
--- NOTE | 2017-08-31 18:39 | ECGEPIP ---
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
[2017-08-31] MEDS ORDERED: ENOXAPARIN 120 MG/0.8 ML SYR (J1650) SC SCH (21:00)
--- NOTE | 2017-09-01 06:05 | CR ---
DATE OF CONSULTATION: 08/31/2017 REQUESTING PHYSICIAN: Dr. Puja Valentine. CONSULTING PHYSICIAN: Dr. Phan. REASON FOR CONSULTATION: Management of end-stage renal disease and peritoneal dialysis. CHIEF COMPLAINT: The patient presented to the hospital last night because of chest pain. HISTORY OF PRESENT ILLNESS: Wali Yuen is a 72-year-old male with past medical history of end-stage renal disease on peritoneal dialysis, well known to nephrology service from outpatient peritoneal dialysis, history of congestive heart failure, coronary artery disease, with history of myocardial infarction ([place]) in the past status post four cardiac stents. The latest one was placed in February 2017, at [facility]. At that time, the patient was told that he needed a bypass grafting but at that time, he refused the intervention because of his multiple comorbidities. The patient presented to the emergency room last night because of central substernal chest pain. It is pressure-like, almost 8/10 intensity, intermittent, aggravated by movements, present at rest. Does not radiate to his jaw or left arm. There is no associated sweating or nausea or vomiting, and the pain is almost the same pain that he felt last time when he had his stents placed. The patient was given nitroglycerin, aspirin, statin on arrival in the emergency room. He was also given a therapeutic dose of Lovenox. Further testing also revealed that the patient was anemic. His hemoglobin was 7.6, and the patient does have history of chest pain in the past as well when he becomes anemic. I saw the patient today morning in the emergency room and he was still complaining of chest pain when I saw him in the morning, and the patient was discussed with cardiology. PAST MEDICAL HISTORY: The patient has a past medical history of end-stage renal disease on peritoneal dialysis, history of congestive heart failure, coronary artery disease, status post cardiac stents in the past, insulin-dependent diabetic, hypertension, hyperlipidemia, anemia secondary to end-stage renal disease, peripheral neuropathy, benign prostatic hypertrophy (BPH), secondary hyperparathyroidism. PAST SURGICAL HISTORY: The patient has a past surgical history of pacemaker insertion, status post cardiac stents times four, latest one was in February 2017, carpal tunnel surgery in the past, and history of peritoneal dialysis (PD) catheter placement. ALLERGIES: The patient is allergic to TAPE and IODINE. FAMILY HISTORY: No significant family history of end-stage renal disease requiring hemodialysis. SOCIAL HISTORY: The patient is an ex smoker. He quit smoking about 12 years ago. He denies any alcohol abuse or recreational drug use. REVIEW OF SYSTEMS: GENERAL: The patient denies any fevers, chills, rigors, or weight loss. EYES: He denies any blurry vision or double vision. ENT: He denies any dysphagia, odynophagia, ear discharge. CARDIOVASCULAR: The patient reports central chest pain. He denies any palpitations. RESPIRATORY: He denies any shortness of breath, cough or sputum. GASTROINTESTINAL (GI): He denies any nausea, vomiting, abdominal pain. MUSCULOSKELETAL: He denies any muscle aches and pains. GENITOURINARY: He denies any dysuria, hematuria. CENTRAL NERVOUS SYSTEM (HAND MODEL): He denies any seizure, stroke or weakness. SKIN: He denies any rashes or ulcers. ENDOCRINE: The patient reports history of diabetes and secondary hyperparathyroidism. PSYCHIATRIC: He denies any depression or anxiety. HEMATOLOGIC/ONCOLOGIC: The patient reports history of anemia. He denies any bruising. He does report history of nose bleeds and history of hemorrhoids that bleed. All other review of systems is negative. PHYSICAL EXAMINATION: GENERAL: The patient is awake, alert, and oriented times three sitting in the bed in mild painful distress. VITAL SIGNS: Today morning, temperature 98.1 degrees Fahrenheit, blood pressure 152/72, pulse is 94, respiratory rate of 20, saturating 95% on room air. HEAD/NECK: Extraocular muscles intact. Pupils equal, round, and reactive to light. Mucous membranes are moist. Neck is supple. There is no jugular venous distention (JVD). CARDIOVASCULAR: S1, S2. Regular rate. No murmur, rub, or gallop. RESPIRATORY: Chest is clear to auscultation bilaterally. Bilateral equal air entry. No rales or rhonchi. ABDOMEN: Soft, nontender, obese. Positive bowel sounds. Peritoneal dialysis catheter in the left lower quadrant. No drainage from the exit site. MUSCULOSKELETAL: No clubbing or cyanosis. Pulses are 2+. CENTRAL NERVOUS SYSTEM (HAND MODEL): No focal neurological deficit. Power is 5/5 in all extremities. SKIN: No rashes or ulcers. PSYCHIATRIC: The patient is slightly anxious because of pain. LABORATORY DATA: CBC showed a WBC of 7.2, hemoglobin 7.6, platelets of 102. INR is 1.1. BMP showed sodium 139, potassium 4.4, chloride 102, bicarbonate 24, BUN 59, creatinine 8.3, calcium 7.5, magnesium 1.6. Troponin is 0.27. It was 0.14 before. IMAGING: A chest x-ray done today morning showed acute on chronic interstitial changes, chronic cardiomegaly and pacemaker. CURRENT INPATIENT MEDICATIONS: The patient was given a dose of magnesium sulfate. He is on: - Tylenol - aspirin 81 mg daily; he was also given a dose of aspirin 325 mg chew - Lipitor 80 mg at bedtime - calcitriol 0.25 mcg daily - PhosLo one tablet with meals - Coreg 25 mg by mouth twice a day - Plavix 75 mg at bedtime - vitamin B12 - Lovenox 120 mg subcutaneous one dose was given - iron tablet 325 mg at bedtime - Proscar 5 mg at bedtime - Prozac 40 mg at bedtime - insulin Levemir 20 units subcutaneous at bedtime - milk of magnesia as needed - morphine sulfate as needed for pain - nitroglycerin as needed for chest pain - omeprazole 40 mg at bedtime - Lyrica 100 mg by mouth twice a day - torsemide 50 mg daily - vitamin D 50,000 by mouth on Wednesdays ASSESSMENT: A 72-year-old male with past medical history of end-stage renal disease on peritoneal dialysis, coronary artery disease, history of stents in the past, insulin-dependent diabetic, hypertension, admitted this time because of unstable angina. PLAN: 1. Unstable angina: The patient continues to have chest pain despite getting aspirin, Plavix, statins, begun beta roger, and he got therapeutic dose of Lovenox. The patient was discussed with cardiology initially with Dr. Beverly, and later on with Dr. Pino as well. Current status of the patient was explained. Dr. Pino will discuss the case with interventional cardiology at [facility], and if appropriate, he will likely be transferred. The patient also has a history of getting chest pains when he is anemic. The patient will get a unit of packed red blood cells (PRBCs) transfusion as well. Continue with telemetry monitoring at this time. 2. Symptomatic anemia: The patient's hemoglobin is 7.6. He will be given a unit of PRBCs transfusion today. 3. End-stage renal disease on peritoneal dialysis: The patient missed his peritoneal dialysis last night when he came to emergency room. His home regimen includes two bags of 2.5% and one bag of 1.5% overnight manager multicultural for seven hours. Over here, the patient will be started on continuous recirculating peritoneal dialysis (CRPD) exchanges, five exchanges in a day, with a mixture of 1.5% and 2.5%, and all volumes will be two liters each. 4. Secondary hyperparathyroidism in end-stage renal disease: Continue current dose of calcitriol 0.25 mcg by mouth daily. 5. Hypertension: Blood pressure is acceptable at this time. Continue current dose of Coreg 25 mg by mouth twice a day. 6. History of congestive heart failure: Volume status is optimized at this time. Continue current dose of torsemide 50 mg daily and peritoneal dialysis will also help manage the fluid status. Thank you for involving us in the care of his patient. I shall be happy to follow the patient along with you tomorrow morning. The patient was discussed with Dr. Puja Valentine, the primary hospitalist, and with Dr. Pino today morning.
--- NOTE | 2017-09-01 21:06 | DSES ---
DATE OF ADMISSION: 08/30/2017 DATE OF DISCHARGE: 08/31/2017 PRIMARY CARE PROVIDER: Puja Cuenca. DISPOSITION: Patient transferred to [facility] for interventional cardiac studies. DISCHARGE DIAGNOSES: 1. Unstable angina. 2. History of coronary artery disease with myocardial infarction in the past, and multiple cardiac stents. 3. History of dissection of right coronary artery. 4. End-stage renal disease on peritoneal dialysis. 5. Diabetes. 6. Hypertension. 7. Hyperlipidemia. 8. Mild aortic stenosis and moderate mitral regurgitation. 9. Pulmonary hypertension with right-sided heart failure. 10. History of nephrolithiasis. 11. Benign prostatic hypertrophy (BPH). 12. Peripheral neuropathy. 13. Secondary hyperparathyroidism. 14. Anemia of chronic kidney disease. 15. History of congestive heart failure. 16. Pacemaker in place due to complete heart block. 17. Hemorrhoids. 18. 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 19. Thrombocytopenia. DISCHARGE MEDICATIONS: - aspirin 81 mg - atorvastatin 80 mg - calcitriol 0.25 mcg by mouth daily - calcium acetate 667 mg by mouth three times a day - Coreg 25 mg by mouth twice a day - Plavix 75 mg daily - vitamin B12 1000 mcg daily - Colace extra strength 250 mg by mouth daily - ferrous sulfate 325 mg by mouth at bedtime - Proscar 5 mg at bedtime - fluoxetine 40 mg at bedtime - glipizide ER 5 mg at bedtime - Lantus 20 units at bedtime - milk of magnesia 30 mL by mouth daily as needed for constipation - nitroglycerin 0.4 mg sublingually as needed for chest pain - omeprazole 40 mg at bedtime - oxycodone 5 mg by mouth four times a day as needed for pain - MiraLAX one packet daily as needed for constipation - Lyrica 100 mg by mouth twice a day - Cathy-Leland one tablet by mouth at bedtime - senna one tablet by mouth at bedtime as needed for constipation - torsemide 50 mg by mouth daily - vitamin D 50,000 units as directed - mupirocin 2% ointment one dose topically as needed for soreness HOSPITAL COURSE: This is a 72-year-old male who presented to the hospital with recurrent chest pain going on over the past two weeks. His chest pain would be precipitated by lifting five liter bags of his dialysis solution and during the episodes of when he would have to hang the bags and do exchanges. It has been getting more and more frequent. On the day prior to admission, it became very severe after undergoing physical therapy. The patient had to take nitroglycerin and then the pain resolved after rest for about an hour. However, it again recurred with the dull pressure-like sensation recurred when he was ambulating in the house, so he came to the emergency room. In the emergency department (ED), the patient was in the ED overnight and had two episodes of pain which resolved with nitroglycerin. The patient was also noted to be anemic with a hemoglobin of 8.4 on admission, which dropped to 7.6 on next day, and also was noted to have low platelet count of 102. The patient had an elevated troponin of 0.14 on admission which peaked at 0.27. Cardiology in our hospital was consulted, and the patient was initially admitted for unstable angina and started on full dose Lovenox. The next morning, the patient continued to complain of intermittent chest pain so the cardiology was again consulted and after speaking with his stamp maker, Dr. Mullins at [facility], who had done several interventional cardiac procedures on the patient in the past, it was felt that the patient should be urgently transferred there for further cardiac interventional studies and management. So the patient was transferred to [facility] for further management. PHYSICAL EXAMINATION: VITAL SIGNS: Temperature 98.8, pulse 94, respiratory rate 20, blood pressure 152/72, pulse oximetry 95% on room air. GENERAL: The patient awake, alert, and oriented times three. Sitting up in bed in no acute distress. HEENT: Normocephalic, atraumatic. Moist mucous membranes. Anicteric eyes. CHEST: Clear to auscultation. CARDIOVASCULAR: S1, S2. Regular. There is a small systolic murmur. No rub or gallop. ABDOMEN: Soft, nontender. Bowel sounds present. EXTREMITIES: No edema. LABORATORY DATA: WBC 7.2, hemoglobin 7.6, platelets 102. Sodium 139, potassium 4.4, chloride 102, bicarbonate 24, BUN 59, creatinine 8.3, glucose 137, calcium 7.5, magnesium 1.6. CK 93, CK-MB 4.4, troponin 0.23. TSH 1.21. Lipase 343, albumin 2.7. Liver function tests are normal. INR was 1.1. EKG showed all paced rhythm. IMAGING: Chest x-ray: Chronic interstitial changes. Pacemaker in place. DISPOSITION: The patient is transferred to [facility]. DISCHARGE INSTRUCTIONS: The patient advised bedrest with bathroom privilege. Carbohydrate consistent and 2-gram sodium diet.
== END 2017-08-31 11:52 | disposition short-term general hospital (02) | DRG 302 ==
LOC: EDBD 17:19 → M ED 17:19 → M ED INP 23:38 → UNDODEPER 09-01 15:13
PROVIDERS: ADMIT Internal Medicine; ATTEND Internal Medicine Nephrology
DX: I25.110 Atherosclerotic heart disease of native coronary artery with unstable angina pectoris (principal); N18.6 End stage renal disease; I13.2 Hypertensive heart and chronic kidney disease with heart failure and with stage 5 chronic kidney disease, or end stage renal disease; N25.81 Secondary hyperparathyroidism of renal origin; D63.1 Anemia in chronic kidney disease; E11.40 Type 2 diabetes mellitus with diabetic neuropathy, unspecified; I50.9 Heart failure, unspecified; I25.2 Old myocardial infarction; E78.5 Hyperlipidemia, unspecified; Z86.73 Personal history of transient ischemic attack (TIA), and cerebral infarction without residual deficits; Z95.0 Presence of cardiac pacemaker; Z96.0 Presence of urogenital implants; Z95.828 Presence of other vascular implants and grafts; Z87.891 Personal history of nicotine dependence; Z79.82 Long term (current) use of aspirin; Z79.4 Long term (current) use of insulin; Z79.02 Long term (current) use of antithrombotics/antiplatelets; Z79.899 Other long term (current) drug therapy; Z99.2 Dependence on renal dialysis; Z91.048 Other nonmedicinal substance allergy status

== ENCOUNTER 2017-11-21 19:26 | Emergency (ER) | payer MEDICARE, BC ==
[2017-11-21] MEDS ORDERED: ISOVUE-370 76% 100ML VIAL (Q9967) As Ordered (20:51)
[2017-11-21 21:01] LABS: BASO % 0.2 % (0.0-1.0); EOS % 0.1 % (0.0-3.0); HEMATOCRIT 27.8 % (42.0-52.0); IMMATURE GRANULOCYTE % 0.2 % (0-3.0); LYMPH # 0.4 10^3/uL (1.5-4.5); LYMPH % 4.3 % (24.0-44.0); MEAN CORPUSCULAR HEMOGLOBIN 31.9 pg (27.0-33.0); MEAN CORPUSCULAR HGB CONC 32.4 g/dl (32.0-36.5); MEAN CORPUSCULAR VOLUME 98.6 fl (80.0-96.0); MONO # 0.6 10^3/uL (0.0-0.8); MONO % 6.3 % (0.0-5.0); NEUTROPHILS # 8.1 10^3/uL (1.8-7.7); NEUTROPHILS % 88.9 % (36.0-66.0); PLATELET COUNT, AUTOMATED 133 10^3/uL (150-450); RED BLOOD COUNT 2.82 10^6/uL (4.30-6.10); RED CELL DISTRIBUTION WIDTH 16.7 % (11.5-14.5); WHITE BLOOD COUNT 9.2 10^3/uL (4.0-10.0)
[2017-11-21 21:11] LABS: ANION GAP 11 MEQ/L (8-16); BLOOD UREA NITROGEN 47 MG/DL (7-18); CALCIUM LEVEL 8.6 MG/DL (8.8-10.2); CARBON DIOXIDE LEVEL 27 MEQ/L (21-32); CHLORIDE LEVEL 100 MEQ/L (98-107); CPK CREATINE PHOSPHOKINASE 80 U/L (39-308); CREATININE FOR GFR 6.74 MG/DL (0.70-1.30); GLOMERULAR FILTRATION RATE 8.6 (>42); GLUCOSE, FASTING 211 MG/DL (70-100); POTASSIUM SERUM 4.6 MEQ/L (3.5-5.1); SODIUM LEVEL 138 MEQ/L (136-145)
[2017-11-21] MEDS: PREGABALIN 100 MG CAP (LYRICA) PO (21:11)
[2017-11-21 21:12] LABS: CK-MB VALUE MASS 5.4 NG/ML (0.0-3.6); MB/CK RELATIVE INDEX 6.75 (< OR =4)
[2017-11-21 22:38] LABS: CK-MB VALUE MASS 8.3 NG/ML (0.0-3.6); CPK CREATINE PHOSPHOKINASE 110 U/L (39-308); MB/CK RELATIVE INDEX 7.54 (< OR =4); TROPONIN I 1.48 NG/ML (< 0.10)
[2017-11-22] MEDS: FUROSEMIDE 100 MG/10 ML VIAL (J1940) IV (00:20)
== END 2017-11-22 00:45 | disposition short-term general hospital (02) ==
LOC: M ED 11-22 00:45
DX: I21.4 Non-ST elevation (NSTEMI) myocardial infarction (principal); I50.9 Heart failure, unspecified; R09.02 Hypoxemia; R79.89 Other specified abnormal findings of blood chemistry; I11.0 Hypertensive heart disease with heart failure; I25.10 Atherosclerotic heart disease of native coronary artery without angina pectoris; Z99.2 Dependence on renal dialysis; Z95.5 Presence of coronary angioplasty implant and graft; Z79.899 Other long term (current) drug therapy; Z79.82 Long term (current) use of aspirin; Z79.4 Long term (current) use of insulin; Z88.8 Allergy status to other drugs, medicaments and biological substances; Z91.048 Other nonmedicinal substance allergy status; Z87.891 Personal history of nicotine dependence
CPT/HCPCS: Q9967

== ENCOUNTER 2017-12-12 12:42 | Outpatient (CLI) | payer MEDICARE, BC, OTHER ==
[2017-12-12] MEDS: diphenhydrAMINE 25 MG CAP PO (15:49)
[2017-12-12] MEDS: ACETAMINOPHEN TAB 650MG DOSE (2X325MG) PO (15:49)
[2017-12-12 17:21] LABS: BEDSIDE GLUCOSE 92 MG/DL (83-110)
[2017-12-12 19:13] LABS: IMMEDIATE SPIN CROSSMATCH 1 2
== END 2017-12-12 23:28 ==
LOC: M INFU 23:28 → M MS4PR 13:22
DX: D64.9 Anemia, unspecified (principal); Z79.82 Long term (current) use of aspirin; Z79.899 Other long term (current) drug therapy; Z79.4 Long term (current) use of insulin; Z88.3 Allergy status to other anti-infective agents; Z91.048 Other nonmedicinal substance allergy status
CPT/HCPCS: 36430

== ENCOUNTER → 2017-12-12 | Outpatient (REF) ==
[2017-12-12 10:33] LABS: MEAN CORPUSCULAR HEMOGLOBIN 28.2 pg (27.0-33.0); PLATELET COUNT, AUTOMATED 153 10^3/uL (150-450); RED BLOOD COUNT 2.34 10^6/uL (4.30-6.10); RED CELL DISTRIBUTION WIDTH 17.8 % (11.5-14.5); WHITE BLOOD COUNT 5.4 10^3/uL (4.0-10.0)
[2017-12-12 10:38] LABS: HEMOGLOBIN 6.6 g/dl (14.0-18.0)
[2017-12-12 11:11] LABS: ANION GAP 10 MEQ/L (8-16); BLOOD UREA NITROGEN 45 MG/DL (7-18); CALCIUM LEVEL 8.2 MG/DL (8.8-10.2); CARBON DIOXIDE LEVEL 30 MEQ/L (21-32); CHLORIDE LEVEL 96 MEQ/L (98-107); CREATININE FOR GFR 5.42 MG/DL (0.70-1.30); GLOMERULAR FILTRATION RATE 11.1 (>42); GLUCOSE, FASTING 55 MG/DL (70-100); NT-PRO BNP 18376 PG/ML (<125); POTASSIUM SERUM 4.3 MEQ/L (3.5-5.1); SODIUM LEVEL 136 MEQ/L (136-145)
== END ==
DX: D64.9 Anemia, unspecified (principal)

== ENCOUNTER → 2017-12-13 | Outpatient (REF) | DX: R31.9 Hematuria, unspecified (principal) ==

== ENCOUNTER → 2017-12-14 | Outpatient (REF) ==
[2017-12-14 12:17] LABS: HEMATOCRIT 25.2 % (42.0-52.0); HEMOGLOBIN 7.8 g/dl (14.0-18.0); MEAN CORPUSCULAR HEMOGLOBIN 28.8 pg (27.0-33.0); PLATELET COUNT, AUTOMATED 142 10^3/uL (150-450); RED BLOOD COUNT 2.71 10^6/uL (4.30-6.10); RED CELL DISTRIBUTION WIDTH 17.2 % (11.5-14.5); WHITE BLOOD COUNT 5.9 10^3/uL (4.0-10.0)
== END ==
DX: R31.9 Hematuria, unspecified (principal); N18.9 Chronic kidney disease, unspecified

== ENCOUNTER 2017-12-15 11:16 | Outpatient (CLI) | payer MEDICARE, BC ==
[2017-12-15] MEDS: diphenhydrAMINE 25 MG CAP PO (15:28)
[2017-12-15] MEDS: ACETAMINOPHEN TAB 650MG DOSE (2X325MG) PO (15:28)
[2017-12-15 18:22] LABS: IMMEDIATE SPIN CROSSMATCH 1 2
== END 2017-12-15 21:30 ==
LOC: M OPCLI5PR 21:30 → M MS5PR 11:18
DX: D64.9 Anemia, unspecified (principal); Z79.899 Other long term (current) drug therapy; Z79.82 Long term (current) use of aspirin; Z79.4 Long term (current) use of insulin; Z88.3 Allergy status to other anti-infective agents; Z91.048 Other nonmedicinal substance allergy status
CPT/HCPCS: 36430

== ENCOUNTER → 2017-12-16 | Outpatient (REF) | payer MEDICARE, BC ==
[2017-12-16 13:44] LABS: HEMATOCRIT 28.2 % (42.0-52.0); HEMOGLOBIN 8.7 g/dl (14.0-18.0); MEAN CORPUSCULAR HGB CONC 30.9 g/dl (32.0-36.5); PLATELET COUNT, AUTOMATED 113 10^3/uL (150-450); RED CELL DISTRIBUTION WIDTH 17.2 % (11.5-14.5); WHITE BLOOD COUNT 5.1 10^3/uL (4.0-10.0)
[2017-12-16 14:06] LABS: APPEARANCE, URINE CLOUDY (CLEAR); BACTERIA, URINE AUTO 1+ (NEGATIVE); BILIRUBIN, URINE AUTO NEGATIVE (NEGATIVE); BLOOD, URINE BLOOD 3+ (NEGATIVE); CALCIUM OXALATE CRYSTALS SMALL; COLOR, URINE AMBER (YELLOW); GLUCOSE, URINE (UA) AUTO NEGATIVE (NEGATIVE); KETONE, URINE AUTO NEGATIVE (NEGATIVE); LEUKOCYTE ESTERASE, URINE AUTO 3+ (NEGATIVE); NITRITE, URINE AUTO NEGATIVE (NEGATIVE); PROTEIN, URINE AUTO 2+ mg/dL (NEGATIVE); RBC, URINE AUTO TNTC /HPF (0-3); SPECIFIC GRAVITY URINE AUTO 1.014 (1.002-1.035); SQUAMOUS EPITHELIAL CELL UR AU 0 /HPF (0-6); UROBILINOGEN, URINE AUTO 0.2 mg/dL (0.0-2.0); WBC, URINE AUTO 100 /HPF (0-3)
== END ==
DX: R31.9 Hematuria, unspecified (principal); D64.9 Anemia, unspecified
CPT/HCPCS: 85027

== ENCOUNTER → 2017-12-18 | Outpatient (REF) ==
[2017-12-18 18:13] LABS: FERRITIN 1482 NG/ML (26-388); IRON (FE) 28 UG/DL (65-175); PERCENT SATURATION 15.8 % (19.7-50.0); TOTAL IRON BINDING CAPACITY 177 UG/DL (250-450)
[2017-12-18 18:14] LABS: ANION GAP 8 MEQ/L (8-16); BLOOD UREA NITROGEN 25 MG/DL (7-18); CALCIUM LEVEL 8.4 MG/DL (8.8-10.2); CARBON DIOXIDE LEVEL 32 MEQ/L (21-32); CHLORIDE LEVEL 100 MEQ/L (98-107); CREATININE FOR GFR 3.81 MG/DL (0.70-1.30); GLOMERULAR FILTRATION RATE 16.7 (>42); GLUCOSE, FASTING 105 MG/DL (70-100); NT-PRO BNP 31458 PG/ML (<125); POTASSIUM SERUM 3.9 MEQ/L (3.5-5.1); SODIUM LEVEL 140 MEQ/L (136-145)
[2017-12-18 18:29] LABS: HEMATOCRIT 29.2 % (42.0-52.0); HEMOGLOBIN 9.1 g/dl (14.0-18.0); MEAN CORPUSCULAR HEMOGLOBIN 28.5 pg (27.0-33.0); MEAN CORPUSCULAR HGB CONC 31.2 g/dl (32.0-36.5); MEAN CORPUSCULAR VOLUME 91.5 fl (80.0-96.0); PLATELET COUNT, AUTOMATED 100 10^3/uL (150-450); RED BLOOD COUNT 3.19 10^6/uL (4.30-6.10); RED CELL DISTRIBUTION WIDTH 16.2 % (11.5-14.5); WHITE BLOOD COUNT 6.1 10^3/uL (4.0-10.0)
== END ==
DX: D64.9 Anemia, unspecified (principal)

== ENCOUNTER → 2018-01-09 | Outpatient (REF) ==
[2018-01-09 09:26] LABS: HEMATOCRIT 27.6 % (42.0-52.0); HEMOGLOBIN 8.4 g/dl (13.5-17.5); MEAN CORPUSCULAR HEMOGLOBIN 28.7 pg (27.0-33.0); MEAN CORPUSCULAR HGB CONC 30.4 g/dl (32.0-36.5); MEAN CORPUSCULAR VOLUME 94.2 fl (80.0-96.0); PLATELET COUNT, AUTOMATED 104 10^3/uL (150-450); RED BLOOD COUNT 2.93 10^6/uL (4.30-6.10); RED CELL DISTRIBUTION WIDTH 17.5 % (11.5-14.5); WHITE BLOOD COUNT 5.9 10^3/uL (4.0-10.0)
[2018-01-09 10:11] LABS: ANION GAP 8 MEQ/L (8-16); BLOOD UREA NITROGEN 34 MG/DL (7-18); CALCIUM LEVEL 8.8 MG/DL (8.8-10.2); CARBON DIOXIDE LEVEL 33 MEQ/L (21-32); CHLORIDE LEVEL 102 MEQ/L (98-107); CREATININE FOR GFR 4.95 MG/DL (0.70-1.30); GLOMERULAR FILTRATION RATE 12.3 (>42); GLUCOSE, FASTING 79 MG/DL (70-100); NT-PRO BNP 40707 PG/ML (<125); POTASSIUM SERUM 3.9 MEQ/L (3.5-5.1); SODIUM LEVEL 143 MEQ/L (136-145)
== END ==
DX: D64.9 Anemia, unspecified (principal); N18.6 End stage renal disease

== ENCOUNTER → 2018-01-16 | Outpatient (REF) | payer MEDICARE, BC ==
[2018-01-16 10:42] LABS: HEMATOCRIT 29.5 % (42.0-52.0); HEMOGLOBIN 9.2 g/dl (13.5-17.5); MEAN CORPUSCULAR HEMOGLOBIN 29.3 pg (27.0-33.0); MEAN CORPUSCULAR HGB CONC 31.2 g/dl (32.0-36.5); MEAN CORPUSCULAR VOLUME 93.9 fl (80.0-96.0); PLATELET COUNT, AUTOMATED 104 10^3/uL (150-450); RED BLOOD COUNT 3.14 10^6/uL (4.30-6.10); RED CELL DISTRIBUTION WIDTH 17.9 % (11.5-14.5); WHITE BLOOD COUNT 6.6 10^3/uL (4.0-10.0)
[2018-01-16 11:34] LABS: ANION GAP 8 MEQ/L (8-16); BLOOD UREA NITROGEN 36 MG/DL (7-18); CALCIUM LEVEL 8.8 MG/DL (8.8-10.2); CARBON DIOXIDE LEVEL 32 MEQ/L (21-32); CHLORIDE LEVEL 99 MEQ/L (98-107); CREATININE FOR GFR 5.13 MG/DL (0.70-1.30); GLOMERULAR FILTRATION RATE 11.8 (>42); GLUCOSE, FASTING 172 MG/DL (70-100); NT-PRO BNP 33337 PG/ML (<125); SODIUM LEVEL 139 MEQ/L (136-145)
== END ==
DX: N18.9 Chronic kidney disease, unspecified (principal)
CPT/HCPCS: 80048

== ENCOUNTER 2018-01-30 12:00 | Day surgery (SDC) | payer MEDICARE, BC ==
[2018-01-30] MEDS: ISOVUE-300 61% 50ML VIAL (Q9967) As Ordered ×2 (12:26)
[2018-01-30] MEDS: AMIODARONE 150MG/3ML INJ (J0282) As Ordered ×2 (12:26)
[2018-01-30 13:07] LABS: BEDSIDE GLUCOSE 116 MG/DL (83-110)
[2018-01-30] MEDS ORDERED: fentaNYL 100 MCG/2 ML INJECTION (J3010) As Ordered ×2 (13:50)
[2018-01-30] MEDS ORDERED: MIDAZOLAM INJ 2 MG/2 ML VIAL (J2250) As Ordered ×2 (13:50)
[2018-01-30] MEDS ORDERED: LIDOCAINE 2% INJ 100 MG/5 ML SDV (FOR ANES.) As Ordered ×2 (13:50)
[2018-01-30] MEDS ORDERED: PROPOFOL 200 MG/20 ML VIAL As Ordered ×4 (13:50→15:08)
[2018-01-30] MEDS: BACITRACIN PWD 50,000 UNITS VIAL As Ordered ×2 (14:04)
[2018-01-30] MEDS: LIDOCAINE 1% SDV INJ 30 ML VIAL As Ordered ×2 (15:09)
[2018-01-30] MEDS ORDERED: PERCOCET 5MG/325MG TAB PO ×2 (15:45)
[2018-01-30] MEDS ORDERED: fentaNYL 100 MCG/2 ML INJECTION (J3010) IV ×2 (15:45)
[2018-01-30] MEDS: LR 1,000 ML IV ×2 (15:45)
[2018-01-30] MEDS ORDERED: ONDANSETRON 4MG/2ML VIAL (J2405) IV ×2 (15:45)
[2018-01-30] MEDS ORDERED: HYDROmorphone HCL 1 MG/ML SYRINGE (J1170) IV ×2 (15:45)
[2018-01-30] MEDS ORDERED: ACETAMINOPHEN TAB 650MG DOSE (2X325MG) PO ×2 (16:15)
[2018-01-30] MEDS ORDERED: NITROGLYCERIN 0.4 MG SUBL TABLET SL ×2 (16:30)
[2018-01-30] MEDS ORDERED: traMADol 50 MG TAB PO ×2 (16:30)
[2018-01-30 18:09] LABS: BEDSIDE GLUCOSE 78 MG/DL (83-110)
[2018-01-30 20:33] LABS: BEDSIDE GLUCOSE 153 MG/DL (83-110)
[2018-01-30] MEDS: ceFAZolin SOD 1 GM in D5W MINI-BAG PLUS 50 ML IV (20:46)
[2018-01-30] MEDS: LEVEMIR (INSULIN DETEMIR) 1 UNITS/0.01ML SC ×2 (20:47)
[2018-01-30] MEDS: ATORVASTATIN 20 MG TAB PO ×2 (20:47)
[2018-01-30] MEDS: PREGABALIN 100 MG CAP (LYRICA) PO ×2 (20:48)
[2018-01-30] MEDS: CARVedilol 6.25 MG TAB PO ×2 (20:48)
[2018-01-30] MEDS: SENNA 8.6 MG TAB (SENOKOT) PO ×2 (21:00)
[2018-01-31] MEDS ORDERED: oxyCODONE 5MG TAB PO ×2 (01:45)
[2018-01-31] MEDS: ceFAZolin SOD 1 GM in D5W MINI-BAG PLUS 50 ML IV (05:38)
[2018-01-31 07:41] LABS: BEDSIDE GLUCOSE 109 MG/DL (83-110)
[2018-01-31 08:24] LABS: BEDSIDE GLUCOSE 87 MG/DL (83-110)
[2018-01-31] MEDS: DOCUSATE SODIUM 100 MG CAP PO ×2 (08:27)
[2018-01-31] MEDS: HumuLIN R (REGULAR) INSULIN (NovoLIN R) **100U/ML** PER UNIT SC ×2 (08:27)
[2018-01-31] MEDS: PREGABALIN 100 MG CAP (LYRICA) PO ×2 (08:27)
[2018-01-31] MEDS: CYANOCOBALAMIN 500 MCG TAB PO ×2 (08:27)
[2018-01-31] MEDS: FERROUS GLUCONATE 324 MG TAB PO ×2 (08:27)
[2018-01-31] MEDS: NEPHRO-VIT TAB (NEPHROCAPS) PO ×2 (08:28)
[2018-01-31] MEDS: FINASTERIDE 5 MG TAB PO ×2 (08:28)
[2018-01-31] MEDS: CARVedilol 6.25 MG TAB PO ×2 (08:28)
[2018-01-31] MEDS: TORSEMIDE (DEMADEX) 50 MG PER 1/2 TAB PO ×2 (08:28)
[2018-01-31] MEDS: OMEPRAZOLE 20 MG CAP PO ×2 (08:28)
[2018-01-31] MEDS: CLOPIDOGREL 75 MG TAB PO ×2 (08:28)
[2018-01-31] MEDS: SENNA 8.6 MG TAB (SENOKOT) PO ×2 (08:28)
[2018-01-31] MEDS: ALLOPURINOL 100 MG TAB PO ×2 (08:28)
[2018-01-31] MEDS: ASPIRIN 81 MG CHEW TABLET PO ×2 (08:28)
[2018-01-31] MEDS: CALCITRIOL 0.25 MCG CAP (S0169) PO ×2 (08:28)
[2018-01-31] MEDS: FLUoxetine 20 MG CAP PO ×2 (08:28)
[2018-01-31] MEDS ORDERED: HumuLIN R (REGULAR) INSULIN (NovoLIN R) **100U/ML** PER UNIT SC ×2 (21:00)
== END 2018-01-31 10:08 | disposition home or self-care (01) ==
LOC: M SDC 12:00 → M PCU 16:17
DX: T82.120A Displacement of cardiac electrode, initial encounter (principal); Y71.2 Prosthetic and other implants, materials and accessory cardiovascular devices associated with adverse incidents; I44.2 Atrioventricular block, complete; I13.2 Hypertensive heart and chronic kidney disease with heart failure and with stage 5 chronic kidney disease, or end stage renal disease; Z95.2 Presence of prosthetic heart valve; Z95.1 Presence of aortocoronary bypass graft; E78.5 Hyperlipidemia, unspecified; I50.9 Heart failure, unspecified; I25.2 Old myocardial infarction; E11.29 Type 2 diabetes mellitus with other diabetic kidney complication; N18.6 End stage renal disease; Z95.5 Presence of coronary angioplasty implant and graft; Z79.899 Other long term (current) drug therapy; Z79.82 Long term (current) use of aspirin; Z79.02 Long term (current) use of antithrombotics/antiplatelets; Z79.4 Long term (current) use of insulin; Z99.2 Dependence on renal dialysis
CPT/HCPCS: 33208

== ENCOUNTER → 2018-06-14 | Outpatient (CLI) | payer MEDICARE, BC | LOC: M PAIN 14:00 | DX: M54.5 Low back pain (principal); G89.29 Other chronic pain; G62.9 Polyneuropathy, unspecified; Z95.2 Presence of prosthetic heart valve; E11.9 Type 2 diabetes mellitus without complications; I10 Essential (primary) hypertension; F17.210 Nicotine dependence, cigarettes, uncomplicated; Z79.82 Long term (current) use of aspirin; Z79.4 Long term (current) use of insulin; Z79.891 Long term (current) use of opiate analgesic; Z79.899 Other long term (current) drug therapy; Z95.5 Presence of coronary angioplasty implant and graft; Z91.040 Latex allergy status; Z91.048 Other nonmedicinal substance allergy status | CPT/HCPCS: G0463 ==

== ENCOUNTER → 2018-06-18 | Outpatient (REF) | payer MEDICARE | LOC: M LAB REF 19:24 | DX: D22.39 Melanocytic nevi of other parts of face (principal) | CPT/HCPCS: 88305 ==

== ENCOUNTER → 2018-06-18 | Outpatient (CLI) | payer MEDICARE, BC ==
[2018-06-18 13:03] LABS: BASO % 0.4 % (0.0-1.0); EOS # 0.2 10^3/uL (0.0-0.50); EOS % 2.8 % (0.0-3.0); HEMATOCRIT 38.1 % (42.0-52.0); HEMOGLOBIN 12.6 g/dl (13.5-17.5); IMMATURE GRANULOCYTE % 0.2 % (0-3.0); LYMPH % 11.9 % (24.0-44.0); MEAN CORPUSCULAR HEMOGLOBIN 31.9 pg (27.0-33.0); MEAN CORPUSCULAR HGB CONC 33.1 g/dl (32.0-36.5); MEAN CORPUSCULAR VOLUME 96.5 fl (80.0-96.0); MONO # 0.7 10^3/uL (0.0-0.8); MONO % 8.6 % (0.0-5.0); NEUTROPHILS # 6.3 10^3/uL (1.8-7.7); NEUTROPHILS % 76.1 % (36.0-66.0); PLATELET COUNT, AUTOMATED 141 10^3/uL (150-450); RED BLOOD COUNT 3.95 10^6/uL (4.30-6.10); RED CELL DISTRIBUTION WIDTH 15.5 % (11.5-14.5); WHITE BLOOD COUNT 8.2 10^3/uL (4.0-10.0)
[2018-06-18 13:59] LABS: TOTAL 25(OH) VITAMIN D 82.7 NG/ML (30.0-100.0)
[2018-06-18 14:10] LABS: ESTIMATED AVERAGE GLUCOSE 117 MG/DL (60-110); HEMOGLOBIN A1c 5.7 %
[2018-06-20 14:20] LABS: VITAMIN D 1,25 DIHYDROXY 52.9 pg/mL (19.9-79.3)
== END ==
LOC: M LAB 11:47
DX: N19 Unspecified kidney failure (principal); E11.9 Type 2 diabetes mellitus without complications; D22.39 Melanocytic nevi of other parts of face; Z79.4 Long term (current) use of insulin
CPT/HCPCS: 83036